=== PATIENT | female | born 1990 | race Caucasian/White ===

== ENCOUNTER 2022-03-02 16:28 | Inpatient (IN) ==
[2022-03-02] MEDS ORDERED: SODIUM CHLORIDE 0.9% 1000ML 1,000 ML IV STA (16:37)
[2022-03-02] MEDS ORDERED: ONDANSETRON INJ 2 MG/ML 2 ML VIAL IV STA (16:37)
[2022-03-02] MEDS ORDERED: HYDROCORTISONE SOD SUCCINATE 100 MG/2 ML VIAL IV STA (16:37)
--- NOTE | 2022-03-02 16:42 | Emergency Department Note ---
Impression & Plan Sustained SVT, Palpitations, Anxiety, Hypomagnesemia, Hypokalemia ED Provider Note NAME: JASMINA SOARES AGE: 31 SEX: F : 1990 ARRIVES VIA: Walk-In INFORMANT: Patient, ED PROVIDER(S): Jimmie Calle DO CHIEF COMPLAINT: Palpitations HPI: The patient is a 31-year-old female who has a history of SVT as well as panhypopituitary is him as well as atrial flutter who presented to the emergency department with palpitations. The patient states that she started having symptoms this morning. She denies having any chest pain. She does complain of some difficulty breathing especially with lying flat. She notices no leg swelling. She states that she is been compliant with her outpatient medications until this morning. She is been having nausea and vomiting as well and could not keep down her morning medications. The patient normally would take hydrocortisone. She denies having any fever. She is not from the area and only recently moved to this area. She does not wish to have Zofran for the nausea as he has a history of prolonged QT. The patient has not had a problem similar to this in the past but the most recent time she had this problem she needed to be cardioverted. ROS: See above HPI for pertinent positives & negatives. A total of 10 systems reviewed and were otherwise negative. PAST MEDICAL HISTORY: See Below PAST SURGICAL HISTORY: See Below FAMILY HISTORY: See Below SOCIAL HISTORY: See Below HOME MEDICATIONS: See Below ALLERGIES: See Below VITALS: See Below PHYSICAL EXAMINATION: GENERAL: The patient is awake and alert. She is very anxious appearing. EYES: The conjunctivae are clear. The pupils are round and reactive. EARS, NOSE, MOUTH AND THROAT: The nose is without any evidence of any deformity. NECK: The neck is nontender and supple. RESPIRATORY: Normal respiratory effort is noted there is no evidence of wheezing rhonchi or rales CARDIOVASCULAR: Tachycardic rate with regular rhythm was noted. There is no definite murmur. GASTROINTESTINAL: The abdomen is soft. Abdomen is nontender. MUSCULOSKELETAL/EXTREMITIES: There is no evidence of gross deformity full range of motion is noted in the hips and shoulders. SKIN: There is no obvious evidence of any rash. There are no petechiae, pallor or cyanosis noted. NEUROLOGIC: Patient is awake alert and oriented x3 strength is symmetric patellar reflexes are 2+ bilaterally MEDICAL DECISION MAKING: The patient is a 31-year-old female who presented to the emergency department for an evaluation of abnormal heart rate and possible SVT. The patient presented with a sustained SVT initially. Modified Valsalva maneuver seem to help with this and she initially broke to a sinus rhythm but then started going back into a tachycardia that appeared to have some variability as well as a slower rate than her initial presentation. I feel the second rate was secondary to a sinus tachycardia rather than recurrence of the SVT. I discussed patient's laboratory and radiographic studies with her. She was found to have significant hypomagnesemia as well as hypokalemia. She was treated with IV fluids as well as magnesium and potassium replacement. Given her findings I discussed her case with the on-call [facility]. They have agreed to evaluate the patie nt in the emergency department for further management and disposition. Triage Nursing notes reviewed. Prior medical records reviewed Vital Signs: reviewed and remarkable for tachycardia. Differential diagnosis: Premature contractions, electrolyte abnormality, cardiac dysrhythmia, thyroid dysfunction, pulmonary embolism, infection, gastrointestinal, as well as other pathologies. ER treatment provided: See below Diagnostics interpreted by me: ECG: EKG was obtained in the emergency department. My interpretation is sinus tachycardia 143 bpm. There was no PVCs noted. Nonspecific ST segment abnormalities noted. No previous tracing was available. Cardiac Monitoring: An order was placed for continuous cardiac monitoring. The monitor shows a rate of 121 bpm with sinus tachycardia. Laboratory studies: As stated above and show below. Imaging studies: See below Consultation(s): I discussed this case with Adenike who is on-call for the [facility] group. ED COURSE: Procedures: Modified Valsalva maneuver was performed at the bedside. This did result in resolution of the presenting SVT. 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 History of OCD (obsessive compulsive disorder) Hypogammaglobulinemia Panhypopituitarism Prolonged QT interval PTSD (post-traumatic stress disorder) SVT (supraventricular tachycardia) Surgical History S/P coil embolization of cerebral aneurysm Family History Mother Breast cancer Social History (Updated 03/02/22 @ 20:35 by ESTHER Soto) Smoking Status: Never smoker Hx Alcohol Use: No Hx Substance Use: No Preferred Language: Armenian Communication Ability: Effective 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 Beliefs That Will Affect Care: None Current Living Situation: Alone Feels Safe at Home: Yes Safety Concerns: Feels Safe At This Time Assistive Devices: None Allergies Allergies Allergy/AdvReac Type Severity Reaction Status Date / Time fentanyl Allergy Severe Anaphylaxis Verified 03/02/22 19:55 Penicillins Allergy Severe Anaphylaxis Verified 03/02/22 19:55 phenazopyridine Allergy Severe Anaphylaxis Verified 03/02/22 19:55 [From Pyridium] trimethobenzamide Allergy Severe Anaphylaxis Verified 03/02/22 19:55 [From Tigan] metoclopramide [From Reglan] AdvReac contraindic Verified 03/02/22 19:55 ated ondansetron [From Zofran] AdvReac contraindic Verified 03/02/22 19:55 ated prochlorperazine AdvReac contraindic Verified 03/02/22 19:55 [From Compazine] ated promethazine [From Phenergan] AdvReac contraindic Verified 03/02/22 19:55 ated Home Meds Home Medications Medication Instructions Recorded Confirmed albuterol sulfate 90 mcg/actuation 2 puff inhalation Q6 PRN Shortness 03/02/22 03/02/22 aerosol inhaler Of Breath Or Wheezing buspirone 10 mg tablet 10 mg PO HS 03/02/22 03/02/22 clopidogrel 75 mg tablet 75 mg PO QAM 03/02/22 03/02/22 cyanocobalamin (vitamin B-12) 1,000 mcg PO DAILY 03/02/22 03/02/22 1,000 mcg tablet epinephrine 0.3 mg/0.3 mL 0.3 mg IM UD PRN Allergic Reaction 03/02/22 03/02/22 injection, auto-injector ergocalciferol (vitamin D2) 1,250 1,250 mcg PO WK 03/02/22 03/02/22 mcg (50,000 unit) capsule eszopiclone 3 mg tablet (Lunesta) 3 mg PO HS 03/02/22 03/02/22 fluoxetine 40 mg capsule 80 mg PO QAM 03/02/22 03/02/22 fluticasone fur. 200 mcg-umeclid 1 ea inhalation DAILY 03/02/22 03/02/22 62.5 mcg-vilant 25 mcg inhalat.powder (Trelegy Ellipta) gabapentin 600 mg tablet,extended 600 mg PO PM 03/02/22 03/02/22 release 24 hr galcanezumab-gnlm 120 mg/mL 120 mg subcut MONTHLY 03/02/22 03/02/22 subcutaneous pen injector (Emgality Pen) hydrocortisone 5 mg tablet 15 mg PO . EVERY AFTERNOON 03/02/22 03/02/22 hydrocortisone 5 mg tablet 25 mg PO QAM 03/02/22 03/02/22 immune globulin (human) (IgG) 10 30 g IV MONTHLY 03/02/22 03/02/22 gram intravenous solution levothyroxine 88 mcg tablet 88 mcg PO DAILYBB 03/02/22 03/02/22 linaclotide 145 mcg capsule 145 mcg PO DAILYBB 03/02/22 03/02/22 (Linzess) trazodone 100 mg tablet 100 mg PO HS 03/02/22 03/02/22 zonisamide 100 mg capsule 100 mg PO DAILY 03/02/22 03/02/22 Results & Data (ED) Vital Signs Vital Signs - 24 hr 03/02/22 16:30 03/02/22 17:00 03/02/22 17:47 Temperature 36.6 C Temperature Source Temporal Artery Scan Pulse Rate 152 H 125 H Pulse Rate [Apical] 126 H Respiratory Rate 18 31 H 18 Respiratory Effort / Characteristics Non-Labored Respiratory Depth Normal Blood Pressure 147/98 H 97/62 L Blood Pressure [Left Arm] 102/70 Blood Pressure Mean 114 73 Blood Pressure Mean [Left Arm] 80 Pulse Oximetry 100 100 100 Oxygen Delivery Method Room Air Room Air Oxygen Flow Rate Sepsis Recent Fever Within 48 Hours No Sepsis New/Unexplained Change in Mental Status No Sepsis Action Taken by Nursing No Action Required 03/02/22 17:30 03/02/22 18:00 03/02/22 18:30 Temperature Temperature Source Pulse Rate 122 H 127 H 117 H Pulse Rate [Apical] Respiratory Rate 26 H 33 H 17 Respiratory Effort / Characteristics Respiratory Depth Blood Pressure 102/70 121/76 111/62 Blood Pressure [Left Arm] Blood Pressure Mean 80 91 78 Blood Pressure Mean [Left Arm] Pulse Oximetry 99 99 99 Oxygen Delivery Method Oxygen Flow Rate Sepsis Recent Fever Within 48 Hours Sepsis New/Unexplained Change in Mental Status Sepsis Action Taken by Nursing 03/02/22 19:00 03/02/22 19:00 03/02/22 19:00 Temperature Temperature Source Pulse Rate 122 H Pulse Rate [Apical] 115 H Respiratory Rate 18 16 Respiratory Effort / Characteristics Respiratory Depth Blood Pressure 94/53 L Blood Pressure [Left Arm] 97/60 L Blood Pressure Mean 66 Blood Pressure Mean [Left Arm] 72 Pulse Oximetry 98 98 Oxygen Delivery Method Room Air Room Air Oxygen Flow Rate 0 Sepsis Recent Fever Within 48 Hours Sepsis New/Unexplained Change in Mental Status Sepsis Action Taken by Usp Medications Current Medication List: was personally reviewed by me Laboratory Data Attestation: I reviewed the patient's lab results. Result diagrams: 03/02/22 16:59 03/02/22 16:59 Lab Results 03/02/22 03/02/22 03/02/22 Range/Units 16:59 16:59 16:59 WBC 11.39 H (4.8-10.8) K/ul RBC 3.94 (3.93-5.22) M/uL Hgb 11.7 L (12.0-16.0) g/dl Hct 34.3 (34.1-44.9) % MCV 87.1 (80.0-100.0) fL MCH 29.7 (25.0-34.0) pg MCHC 34.1 (32.0-36.0) g/dL RDW Std Deviation 39.5 (36.4-46.3) fL RDW Coeff of Belinda 12.5 (11.5-14.5) % Plt Count 297 (130-400) K/uL MPV 9.8 (9.4-12.3) fL Immature Gran % (Auto) 1.1 % Neut % (Auto) 58.0 % Lymph % (Auto) 34.0 % [place] % (Auto) 6.1 % Eos % (Auto) 0.4 % Baso % (Auto) 0.4 % Neut # (Auto) 6.63 H (1.4-6.5) K/uL Lymph # (Auto) 3.87 H (1.2-3.4) K/uL [place] # (Auto) 0.69 (0.24-0.82) K/uL Eos # (Auto) 0.04 (0-0.50) K/uL Baso # (Auto) 0.04 (0-0.2) K/uL Immature Gran # (Auto) 0.12 H (0.00-0.02) K/uL PT 10.2 (9.0-12.0) Seconds INR 1.0 (0.9-1.1) APTT 53.2 H* (21.0-31.0) Seconds PTT Ratio 1.9 Sodium (136-145) mmol/L Potassium (3.5-5.1) mmol/L Chloride (98-107) mmol/L Carbon Dioxide (21-32) mmol/L Anion Gap (3-11) BUN (6-23) mg/dl Creatinine (0.6-1.2) mg/dl Est Cr Clr Drug Dosing ml/min Est GFR ( Amer) ml/min Est GFR (Non-Af Amer) ml/min BUN/Creatinine Ratio (10-20) Glucose (70-99(Fasting)) mg/dl Calcium (8.5-10.1) mg/dl Phosphorus (2.5-4.9) mg/dl Magnesium (1.7-2.4) mg/dl Total Bilirubin (0.2-1.0) mg/dl AST (13-39) U/L ALT (7-52) U/L Alkaline Phosphatase (34-104) U/L Troponin I High Sens (0-14) pg/ml Total Protein (6.0-8.3) gm/dl Albumin (3.4-5.0) gm/dl Globulin (2.5-4.0) gm/dl Albumin/Globulin Ratio (0.9-2) TSH (0.300-4.500) uIu/ml HCG, Qual Negative (Negative) Urine Color Urine Appearance (Clear) Urine pH (4.5-7.5) Ur Specific [place] (1.000-1.030) Urine Protein (Negative) Urine Glucose (UA) (Negative) Urine Ketones (Negative) Urine Blood (Negative) Urine Nitrite (Negative) Urine Bilirubin (Negative) Urine Urobilinogen (Negative) Ur Leukocyte Esterase (Negative) Urine WBC (Auto) (0-5) /hpf Urine RBC (Auto) (0-4) /hpf U Hyaline Cast (Auto) (0-5) /lpf U Epithel Cells (Auto) (0-5) /lpf Urine Bacteria (Auto) (Negative) SARS-CoV-2, RNA, NAAT (NEGATIVE) 03/02/22 03/02/22 03/02/22 Range/Units 16:59 16:59 16:59 WBC (4.8-10.8) K/ul RBC (3.93-5.22) M/uL Hgb (12.0-16.0) g/dl Hct (34.1-44.9) % MCV (80.0-100.0) fL MCH (25.0-34.0) pg MCHC (32.0-36.0) g/dL RDW Std Deviation (36.4-46.3) fL RDW Coeff of Belinda (11.5-14.5) % Plt Count (130-400) K/uL MPV (9.4-12.3) fL Immature Gran % (Auto) % Neut % (Auto) % Lymph % (Auto) % [place] % (Auto) % Eos % (Auto) % Baso % (Auto) % Neut # (Auto) (1.4-6.5) K/uL Lymph # (Auto) (1.2-3.4) K/uL [place] # (Auto) (0.24-0.82) K/uL Eos # (Auto) (0-0.50) K/uL Baso # (Auto) (0-0.2) K/uL Immature Gran # (Auto) (0.00-0.02) K/uL PT (9.0-12.0) Seconds INR (0.9-1.1) APTT (21.0-31.0) Seconds PTT Ratio Sodium 138 (136-145) mmol/L Potassium 2.4 L* (3.5-5.1) mmol/L Chloride 107 (98-107) mmol/L Carbon Dioxide 19 L (21-32) mmol/L Anion Gap 12 H (3-11) BUN 17 (6-23) mg/dl Creatinine 0.67 (0.6-1.2) mg/dl Est Cr Clr Drug Dosing 149.5 ml/min Est GFR ( Amer) 133.9 ml/min Est GFR (Non-Af Amer) 115.5 ml/min BUN/Creatinine Ratio 25.4 H (10-20) Glucose 101 H (70-99(Fasting)) mg/dl Calcium 7.8 L (8.5-10.1) mg/dl Phosphorus 1.4 L* (2.5-4.9) mg/dl Magnesium 1.5 L (1.7-2.4) mg/dl Total Bilirubin 0.3 (0.2-1.0) mg/dl AST 12 L (13-39) U/L ALT 12 (7-52) U/L Alkaline Phosphatase 79 (34-104) U/L Troponin I High Sens 3.3 (0-14) pg/ml Total Protein 6.1 (6.0-8.3) gm/dl Albumin 3.7 (3.4-5.0) gm/dl Globulin 2.4 L (2.5-4.0) gm/dl Albumin/Globulin Ratio 1.5 (0.9-2) TSH 2.670 (0.300-4.500) uIu/ml HCG, Qual (Negative) Urine Color Urine Appearance (Clear) Urine pH (4.5-7.5) Ur Specific [place] (1.000-1.030) Urine Protein (Negative) Urine Glucose (UA) (Negative) Urine Ketones (Negative) Urine Blood (Negative) Urine Nitrite (Negative) Urine Bilirubin (Negative) Urine Urobilinogen (Negative) Ur Leukocyte Esterase (Negative) Urine WBC (Auto) (0-5) /hpf Urine RBC (Auto) (0-4) /hpf U Hyaline Cast (Auto) (0-5) /lpf U Epithel Cells (Auto) (0-5) /lpf Urine Bacteria (Auto) (Negative) SARS-CoV-2, RNA, NAAT (NEGATIVE) 03/02/22 03/02/22 Range/Units 18:02 18:18 WBC (4.8-10.8) K/ul RBC (3.93-5.22) M/uL Hgb (12.0-16.0) g/dl Hct (34.1-44.9) % MCV (80.0-100.0) fL MCH (25.0-34.0) pg MCHC (32.0-36.0) g/dL RDW Std Deviation (36.4-46.3) fL RDW Coeff of Belinda (11.5-14.5) % Plt Count (130-400) K/uL MPV (9.4-12.3) fL Immature Gran % (Auto) % Neut % (Auto) % Lymph % (Auto) % [place] % (Auto) % Eos % (Auto) % Baso % (Auto) % Neut # (Auto) (1.4-6.5) K/uL Lymph # (Auto) (1.2-3.4) K/uL [place] # (Auto) (0.24-0.82) K/uL Eos # (Auto) (0-0.50) K/uL Baso # (Auto) (0-0.2) K/uL Immature Gran # (Auto) (0.00-0.02) K/uL PT (9.0-12.0) Seconds INR (0.9-1.1) APTT (21.0-31.0) Seconds PTT Ratio Sodium (136-145) mmol/L Potassium (3.5-5.1) mmol/L Chloride (98-107) mmol/L Carbon Dioxide (21-32) mmol/L Anion Gap (3-11) BUN (6-23) mg/dl Creatinine (0.6-1.2) mg/dl Est Cr Clr Drug Dosing ml/min Est GFR ( Amer) ml/min Est GFR (Non-Af Amer) ml/min BUN/Creatinine Ratio (10-20) Glucose (70-99(Fasting)) mg/dl Calcium (8.5-10.1) mg/dl Phosphorus (2.5-4.9) mg/dl Magnesium (1.7-2.4) mg/dl Total Bilirubin (0.2-1.0) mg/dl AST (13-39) U/L ALT (7-52) U/L Alkaline Phosphatase (34-104) U/L Troponin I High Sens (0-14) pg/ml Total Protein (6.0-8.3) gm/dl Albumin (3.4-5.0) gm/dl Globulin (2.5-4.0) gm/dl Albumin/Globulin Ratio (0.9-2) TSH (0.300-4.500) uIu/ml HCG, Qual (Negative) Urine Color Yellow Urine Appearance Turbid A (Clear) Urine pH 8.0 H (4.5-7.5) Ur Specific [place] 1.013 (1.000-1.030) Urine Protein Negative (Negative) Urine Glucose (UA) Negative (Negative) Urine Ketones Negative (Negative) Urine Blood Trace H (Negative) Urine Nitrite Negative (Negative) Urine Bilirubin Negative (Negative) Urine Urobilinogen Negative (Negative) Ur Leukocyte Esterase Negative (Negative) Urine WBC (Auto) 1-5 (0-5) /hpf Urine RBC (Auto) 5-10 H (0-4) /hpf U Hyaline Cast (Auto) 1-5 (0-5) /lpf U Epithel Cells (Auto) >30 H (0-5) /lpf Urine Bacteria (Auto) 1+ H (Negative) SARS-CoV-2, RNA, NAAT NEGATIVE (NEGATIVE) Administered Medications Potassium Chloride (K Yoseph / Wtr) 10 meq in 100 mls @ 100 mls/hr IV Q1H JUAN MIGUEL Stop: 03/03/22 00:14 Last Admin: 03/02/22 23:32 Dose: 100 mls/hr Documented By: Infusion: 03/02/22 23:20 Dose: 100 mls/hr Documented By: Admin: 03/02/22 22:20 Dose: 100 mls/hr Documented By: TMKevan Infusion: 03/02/22 22:20 Dose: 100 mls/hr Documented By: Admin: 03/02/22 21:41 Dose: 100 mls/hr Documented By: PATRIC Potassium Phosphate 21 mmol/ (Sodium Chloride) 507 mls @ 88 mls/hr IV ONE ONE Stop: 03/03/22 02:45 Last Admin: 03/02/22 21:42 Dose: 88 mls/hr Documented By: PATRIC Discontinued Medications Diphenhydramine HCl (Diphenhydramine 50 Mg/Ml Vial) 25 mg IV NOW STA Stop: 03/02/22 19:44 Last Admin: 03/02/22 21:19 Dose: Not Given Documented By: KT Diphenhydramine HCl (Diphenhydramine 50 Mg/Ml Vial) Confirm Administered Dose 50 mg .ROUTE .STK-MED ONE Stop: 03/02/22 20:06 Last Admin: 03/02/22 20:09 Dose: 25 mg Documented By: KT Hydrocortisone Sodium Succinate (Hydrocortisone Sod Succinate 100 Mg/2 Ml Vial) 100 mg IV NOW STA Stop: 03/02/22 16:38 Last Admin: 03/02/22 16:53 Dose: 100 mg Documented By: TRAVIS Hydromorphone HCl (Hydromorphone Inj 0.5 Mg/0.5 Ml Syr) Confirm Administered Dose 0.5 mg .ROUTE .STK-MED ONE Stop: 03/02/22 22:42 Last Admin: 03/02/22 22:45 Dose: 0.5 mg Documented By: DENI Sodium Chloride (Nss 1000ml) 1,000 mls @ 999 mls/hr IV .Q1H1M STA Stop: 03/02/22 17:37 Last Infusion: 03/02/22 18:09 Dose: 0 mls/hr Documented By: Admin: 03/02/22 16:55 Dose: 999 mls/hr Documented By: TRAVIS Magnesium Sulfate/Dextrose (Magnesium Sulfate / D5w) 1 gm in 100 mls @ 100 mls/hr IV NOW STA Stop: 03/02/22 18:51 Last Infusion: 03/02/22 19:32 Dose: 0 mls/hr Documented By: Infusion: 03/02/22 19:32 Dose: 0 mls/hr Documented By: Admin: 03/02/22 18:14 Dose: 100 mls/hr Documented By: ML Potassium Chloride (K Yoseph / Wtr) 10 meq in 100 mls @ 100 mls/hr IV ONE ONE; P rotocol Stop: 03/02/22 18:51 Last Infusion: 03/02/22 19:40 Dose: 0 mls/hr Documented By: Admin: 03/02/22 18:14 Dose: 100 mls/hr Documented By: ML Sodium Chloride (Nss 1000ml) 1,000 mls @ 999 mls/hr IV .Q1H1M ONE Stop: 03/02/22 20:36 Last Infusion: 03/02/22 21:19 Dose: 0 mls/hr Documented By: Admin: 03/02/22 20:08 Dose: 999 mls/hr Documented By: PATRIC Ondansetron HCl (Ondansetron Inj 2 Mg/Ml 2 Ml Vial) 4 mg IV NOW STA Stop: 03/02/22 16:38 Last Admin: 03/02/22 17:28 Dose: Not Given Documented By: DERIK Potassium Chloride (Potassium Chloride 10 Meq Tabcr) 10 meq PO NOW STA Stop: 03/02/22 17:53 Last Admin: 03/02/22 18:14 Dose: 10 meq Documented By: JERAMIE Potassium Chloride (Potassium Chloride Crtab 20 Meq Tabcr) 40 meq PO NOW STA Stop: 03/02/22 20:03 Last Admin: 03/02/22 21:41 Dose: Not Given Documented By: PATRIC Imaging Data Radiologist's Impression: Chest X-Ray 03/02/22 16:38 XR chest 1V portable CLINICAL HISTORY: Dysrhythmia TECHNIQUE: Single frontal radiograph of the chest was obtained. Comparison: None available at the time of this dictation. FINDINGS: A port catheter is seen. The cardiomediastinal silhouette is normal. The lungs are clear. No evidence of pleural effusion or pneumothorax. IMPRESSION: No acute chest disease. ACT 112: Negative or not required by law. Electronically signed by: Jos Otero M.D. 03/02/2022 5:21 PM Discharge Plan Visit Data Chief Complaint: Tachycardia Stated Complaint: CHEST PAIN, SOB, RAPID HEART BEAT ED Provider: Jimmie Calle Discharge Problem: Sustained SVT, Palpitations, Anxiety, Hypomagnesemia, Hypokalemia Patient Disposition: Admitted As Inpatient Discharge Instructions Interventions: ED Discharge Assessment Last Done: 03/02/22 22:11
[2022-03-02 17:15] LABS: Basophils # (auto) 0.04 K/uL (0-0.2); Basophils % (auto) 0.4 %; Eosinophils # (auto) 0.04 K/uL (0-0.50); Eosinophils % (auto) 0.4 %; Hematocrit (blood only) 34.3 % (34.1-44.9); Hemoglobin 11.7 g/dl (12.0-16.0); Immature Granulocytes # (auto) 0.12 K/uL (0.00-0.02); Immature Granulocytes % (auto) 1.1 %; Lymphocytes # (auto) 3.87 K/uL (1.2-3.4); Mean Corpuscular Hemoglobin 29.7 pg (25.0-34.0); Mean Corpuscular Hgb Conc 34.1 g/dL (32.0-36.0); Mean Corpuscular Volume 87.1 fL (80.0-100.0); Mean Platelet Volume 9.8 fL (9.4-12.3); Monocytes # (auto) 0.69 K/uL (0.24-0.82); Monocytes % (auto) 6.1 %; Neutrophils # (auto) 6.63 K/uL (1.4-6.5); Platelet Count 297 K/uL (130-400); RDW Coefficient of Variation 12.5 % (11.5-14.5); RDW Standard Deviation 39.5 fL (36.4-46.3); Red Blood Count 3.94 M/uL (3.93-5.22); White Blood Count 11.39 K/ul (4.8-10.8)
--- NOTE | 2022-03-02 17:23 | XRay Report ---
XR chest 1V portable CLINICAL HISTORY: Dysrhythmia TECHNIQUE: Single frontal radiograph of the chest was obtained. Comparison: None available at the time of this dictation. FINDINGS: A port catheter is seen. The cardiomediastinal silhouette is normal. The lungs are clear. No evidence of pleural effusion or pneumothorax. IMPRESSION: No acute chest disease. ACT 112: Negative or not required by law. Electronically signed by: Jos Otero M.D. 03/02/2022 5:21 PM
[2022-03-02 17:41] LABS: Pregnancy Test, Serum Negative (Negative)
[2022-03-02 17:45] LABS: Albumin Globulin Ratio 1.5 (0.9-2); Albumin Level 3.7 gm/dl (3.4-5.0); BUN Creatinine Ratio 25.4 (10-20); Bilirubin,Total 0.3 mg/dl (0.2-1.0); Calcium 7.8 mg/dl (8.5-10.1); Creatinine Clr Calc Pharmacy 149.5 ml/min; Est GFR (African American) 133.9 ml/min; Est GFR (Non-African American) 115.5 ml/min; Globulin 2.4 gm/dl (2.5-4.0); Magnesium 1.5 mg/dl (1.7-2.4); Potassium 2.4 mmol/L (3.5-5.1); Total Protein 6.1 gm/dl (6.0-8.3); Troponin I High Sensitivity 3.3 pg/ml (0-14)
[2022-03-02] MEDS ORDERED: POTASSIUM CHLORIDE / WTR 10 MEQ/100 ML PLCT IV ONE (17:52)
[2022-03-02] MEDS ORDERED: POTASSIUM CHLORIDE 10 MEQ TABCR PO STA (17:52)
[2022-03-02] MEDS ORDERED: MAGNESIUM SULFATE / D5W 1 GM/100 ML BAG IV STA (17:52)
[2022-03-02 17:54] LABS: Partial Thromboplastin Ratio 1.9; Prothrombin Time 10.2 Seconds (9.0-12.0)
[2022-03-02 17:59] LABS: Partial Thromboplastin Time 53.2 Seconds (21.0-31.0)
[2022-03-02] MEDS ORDERED: SODIUM CHLORIDE 0.9% 1000ML 1,000 ML IV ONE (19:36)
[2022-03-02] MEDS ORDERED: diphenhydrAMINE 50 MG/ML VIAL IV STA (19:43)
[2022-03-02 19:56] LABS: Appearance Urine Turbid (Clear); Bacteria Urine Automated 1+ (Negative); Bilirubin Urine Negative (Negative); Blood Urine Trace (Negative); Color Urine Yellow; Epithelial Cell Urine Auto >30 /lpf (0-5); Glucose Urine UA Negative (Negative); Ketones Urine Negative (Negative); Leukocyte Esterase Urine Negative (Negative); Nitrite Urine Negative (Negative); Protein Urine Negative (Negative); Specific Gravity Urine 1.013 (1.000-1.030); Urobilinogen Urine Negative (Negative)
[2022-03-02] MEDS ORDERED: POTASSIUM CHLORIDE CRTAB 20 MEQ TABCR PO STA (20:02)
[2022-03-02] MEDS ORDERED: diphenhydrAMINE 50 MG/ML VIAL ONE (20:05)
--- NOTE | 2022-03-02 20:33 | History & Physical Report ---
Date of Service March 02, 2022 Assessment & Plan (1) Panhypopituitarism: (2) Adrenal insufficiency: Plan: Admit to telemetry Patient presenting with reports of nausea, vomiting, abdominal pain, palpitations. Review of outpatient records show several previous admissions for similar presentation. Most recently [place] [facility] [place]/01 for viral gastroenteritis type picture and treated for adrenal crisis. In the ED, presented with SVT and borderline hypotension, multiple electrolyte abnormalities S/p IV hydrocortisone 100 mg in ED, continue with IV hydrocortisone 100 mg q8h Follows with endocrinology at [facility] [place] (3) Hypokalemia: (4) Hypophosphatemia: (5) Hypomagnesemia: Plan: K+ 2.4, Phos 1.4, Mg +1.5 Replace, follow electrolytes (6) SVT (supraventricular tachycardia): (7) Prolonged QT interval: Plan: History of SVT requiring cardioversion and prolonged QT in the past due to severe electrolyte abnormalities Presented with SVT today which improved with Valsalva maneuver and IVF Prolonged QTC noted on EKG -- avoid QTC prolonging agents, correct electrolytes, monitor daily EKG (8) S/P coil embolization of cerebral aneurysm: (9) History of cerebral aneurysm: Plan: Continue clopidogrel (10) YVETTE (generalized anxiety disorder): (11) PTSD (post-traumatic stress disorder): (12) History of OCD (obsessive compulsive disorder): Plan: Continue home medications including buspirone, trazodone, zonisamide, Lunesta, fluoxetine (13) Hypogammaglobulinemia: Plan: Receives IVIG monthly (14) Asthma: Plan: No signs of acute exacerbation, continue home inhaler (15) DVT prophylaxis: Plan: SCDs History of Present Illness Chief Complaint: Abdominal pain, nausea, vomiting, palpitations Primary Care Provider: Harmeet Correa MD 31-year-old female with PMH panhypopituitary is him, adrenal insufficiency, common variable immunodeficiency, hypogammaglobulinemia on IVIG monthly, prolonged QT, SVT, history of cerebral aneurysm s/p stenting and coiling, asthma, OCD, PTSD, anxiety, and other problems listed below who presents the ED for evaluation of abdominal pain, nausea, palpitations. Review of outpatient records show that patient is frequently admitted for similar presentation. Most recently admitted to [facility] [place] 02/25 through 03/01 for viral gastroenteritis-like picture, treated for adrenal crisis. Patient reports she was feeling well until this afternoon when she had sudden onset nausea, lower abdominal pain, multiple episodes of vomiting. Patient states she then developed palpitations. Patient reports she is visiting a friend in [place]. She denies fevers and chills. No lightheadedness, dizziness, diaphoresis, syncopal events. She denies hematemesis, coffee-ground emesis, diarrhea, bright OB impression, dark tarry stools. No urinary symptoms. Upon arrival to the ED, patient was found to be tachycardic in the 150s, consistent with SVT. Heart rate improved with Valsalva maneuver. Labs show significant hypokalemia with K+ 2.4. Mg +1.5. Patient was given IVF, IV hydrocortisone, potassium and magnesium replacement. Allergies Allergy/AdvReac Type Severity Reaction Status Date / Time fentanyl Allergy Severe Anaphylaxis Verified 03/02/22 19:55 Penicillins Allergy Severe Anaphylaxis Verified 03/02/22 19:55 phenazopyridine Allergy Severe Anaphylaxis Verified 03/02/22 19:55 [From Pyridium] trimethobenzamide Allergy Severe Anaphylaxis Verified 03/02/22 19:55 [From Tigan] metoclopramide [From Reglan] AdvReac contraindic Verified 03/02/22 19:55 ated ondansetron [From Zofran] AdvReac contraindic Verified 03/02/22 19:55 ated prochlorperazine AdvReac contraindic Verified 03/02/22 19:55 [From Compazine] ated promethazine [From Phenergan] AdvReac contraindic Verified 03/02/22 19:55 ated Home Medications Medication Instructions Recorded Confirmed Type albuterol sulfate 90 mcg/actuation 2 puff inhalation Q6 PRN Shortness 03/02/22 03/02/22 History aerosol inhaler Of Breath Or Wheezing buspirone 10 mg tablet 10 mg PO HS 03/02/22 03/02/22 History clopidogrel 75 mg tablet 75 mg PO QAM 03/02/22 03/02/22 History cyanocobalamin (vitamin B-12) 1,000 mcg PO DAILY 03/02/22 03/02/22 History 1,000 mcg tablet epinephrine 0.3 mg/0.3 mL 0.3 mg IM UD PRN Allergic Reaction 03/02/22 03/02/22 History injection, auto-injector ergocalciferol (vitamin D2) 1,250 1,250 mcg PO WK 03/02/22 03/02/22 History mcg (50,000 unit) capsule eszopiclone 3 mg tablet (Lunesta) 3 mg PO HS 03/02/22 03/02/22 History fluoxetine 40 mg capsule 80 mg PO QAM 03/02/22 03/02/22 History fluticasone fur. 200 mcg-umeclid 1 ea inhalation DAILY 03/02/22 03/02/22 History 62.5 mcg-vilant 25 mcg inhalat.powder (Trelegy Ellipta) gabapentin 600 mg tablet,extended 600 mg PO PM 03/02/22 03/02/22 History release 24 hr galcanezumab-gnlm 120 mg/mL 120 mg subcut MONTHLY 03/02/22 03/02/22 History subcutaneous pen injector (Emgality Pen) hydrocortisone 5 mg tablet 15 mg PO . EVERY AFTERNOON 03/02/22 03/02/22 History hydrocortisone 5 mg tablet 25 mg PO QAM 03/02/22 03/02/22 History immune globulin (human) (IgG) 10 30 g IV MONTHLY 03/02/22 03/02/22 History gram intravenous solution levothyroxine 88 mcg tablet 88 mcg PO DAILYBB 03/02/22 03/02/22 History linaclotide 145 mcg capsule 145 mcg PO DAILYBB 03/02/22 03/02/22 History (Linzess) trazodone 100 mg tablet 100 mg PO HS 03/02/22 03/02/22 History zonisamide 100 mg capsule 100 mg PO DAILY 03/02/22 03/02/22 History 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 History of OCD (obsessive compulsive disorder) Hypogammaglobulinemia Panhypopituitarism Prolonged QT interval PTSD (post-traumatic stress disorder) SVT (supraventricular tachycardia) Surgical History S/P coil embolization of cerebral aneurysm Family History Mother Breast cancer Social History (Updated 03/02/22 @ 20:35 by ESTHER Soto) Smoking Status: Never smoker Hx Alcohol Use: No Hx Substance Use: No Preferred Language: Greenlandic Communication Ability: Effective Computer Operations Analyst Required: No Beliefs That Will Affect Care: None Current Living Situation: Alone Feels Safe at Home: Yes Safety Concerns: Feels Safe At This Time Assistive Devices: None Review of Systems Review of Systems: ROS per HPI, all other systems reviewed and negative Physical Exam Constitutional: WD/WN, vitals as above Eyes: PERRL, conjunctivae normal, anicteric sclerae ENMT: external ear and nose normal, oropharynx normal Respiratory: normal respiratory effort, lungs clear to auscultation Cardiovascular: Rate/Rhythm: regular rhythm and + tachycardic Vessels: normal peripheral pulses Extremities: no edema Gastrointestinal (Abdomen): Inspection/Auscultation: normal bowel sounds; abdomen not distended Percussion/Palpation: + abdomen tender (BLLQ ) and abdomen soft; no hepatosplenomegaly Musculoskeletal: no cyanosis or clubbing, extremities motor strength 5/5 Skin: no rashes, warm and dry Neurologic: PERRL, EOMI, accommodation nl, no face palsy, no dysarthria Psychiatric: Orientation: alert and oriented x 3 Affect: + anxious affect Results & Data Results & Data ([facility]) Vital Signs (Past 12 Hours) Vital Signs Temp Pulse Pulse Resp BP BP Pulse Ox 03/02/22 19:00 115 H 16 97/60 L 98 03/02/22 19:00 98 03/02/22 19:00 122 H 18 94/53 L 03/02/22 18:30 117 H 17 111/62 99 03/02/22 18:00 127 H 33 H 121/76 99 03/02/22 17:30 122 H 26 H 102/70 99 03/02/22 17:47 126 H 18 102/70 100 03/02/22 17:00 125 H 31 H 97/62 L 100 03/02/22 16:30 36.6 C 152 H 18 147/98 H 100 O2 Del Method O2 Flow Rate 03/02/22 19:00 Room Air 03/02/22 19:00 Room Air 0 03/02/22 19:00 03/02/22 18:30 03/02/22 18:00 03/02/22 17:30 03/02/22 17:47 Room Air 03/02/22 17:00 03/02/22 16:30 Room Air Laboratory Results Short CBC 03/02/22 Range/Units 16:59 WBC 11.39 H (4.8-10.8) K/ul Hgb 11.7 L (12.0-16.0) g/dl Hct 34.3 (34.1-44.9) % Plt Count 297 (130-400) K/uL BMP 03/02/22 16:59 Sodium 138 Potassium 2.4 L* Chloride 107 Carbon Dioxide 19 L BUN 17 Creatinine 0.67 Glucose 101 H Calcium 7.8 L Liver Function 03/02/22 Range/Units 16:59 Total Bilirubin 0.3 (0.2-1.0) mg/dl AST 12 L (13-39) U/L ALT 12 (7-52) U/L Alkaline Phosphatase 79 (34-104) U/L Albumin 3.7 (3.4-5.0) gm/dl Urine 03/02/22 Range/Units 18:02 Urine Color Yellow Urine Appearance Turbid A (Clear) Urine pH 8.0 H (4.5-7.5) Ur Specific Whitney 1.013 (1.000-1.030) Urine Protein Negative (Negative) Urine Glucose (UA) Negative (Negative) Diagnostic Findings Chest X-Ray 03/02/22 16:38 XR chest 1V portable CLINICAL HISTORY: Dysrhythmia TECHNIQUE: Single frontal radiograph of the chest was obtained. Comparison: None available at the time of this dictation. FINDINGS: A port catheter is seen. The cardiomediastinal silhouette is normal. The lungs are clear. No evidence of pleural effusion or pneumothorax. IMPRESSION: No acute chest disease. ACT 112: Negative or not required by law. Electronically signed by: Jos Otero M.D. 03/02/2022 5:21 PM Code Status & VTE Plan VTE Prophylaxis Plan VTE Prophylaxis will be ordered: Yes Supervising Physician Co-Signing Physician Notes Care coordinated with ESTHER Soto. Agree with above note. Patient seen and examined. Please refer to her notes for full details. Vital signs reviewed. Physical exam: General exam: Alert and oriented. Not in acute distress. CVS: S1 and S2 heard, regular rate and rhythm, no murmurs. RS: Clear to auscultation, no wheezing or crackles. ABD: Soft, bowel sounds present, nontender, no distention. HONEY GRADER AND BLENDER: Nonfocal. EXT: No edema, no erythema. Labs: Reviewed. Assessment and plan: 31f presents with nausea/abdominal pain tachycardia , electrolyte abnormalities. Seems multiple admissions due it GI issues and not able to tolerate oral hydrocortisone as per recent endocrinology notes. Patient has panhypopitutarism since aneurysm surgery . Dx to have aneurysm and s/p stent in [place] in October/january. ? bleeding into sella from aneurysm-had evacuation, unclear she had pituitary resection as per endocrinology notes. Supposed to be on desmopressin but staying off it as per Endo notes. Was in SVT in ER converted to sinus rhythm by modified Vasalva manucarley. Again during night she was in sinus tachycardia and as SBP ok gave a dose of iv lopressor 2.5mg. repleting electrolytes. requesting iv benadryl for nausea as she has qt prolongation. requesting pain meds for abdominal pain. Seems Did not wanted ct abd as she had many ct scans . If not improving will consult GI and if need cardiology .Will continue stress dose iv steroids .Close monitor. Other diagnosis and plan of care as per []. Maciej miller MD.
[2022-03-02] MEDS ORDERED: POTASSIUM PHOS 3 MMOL/1 ML INFUSION IV STA (20:40)
[2022-03-02] MEDS ORDERED: POTASSIUM PHOSPHATE 21 MMOL in SODIUM CHLORIDE 0.9% 500 ML IV ONE (21:00)
[2022-03-02] MEDS: POTASSIUM CHLORIDE / WTR 10 MEQ/100 ML PLCT IV SCH ×3 (21:41→23:32)
[2022-03-02] MEDS ORDERED: ACETAMINOPHEN 325 MG TAB PO PRN (22:14)
[2022-03-02] MEDS ORDERED: HYDROCORTISONE SOD SUCCINATE 100 MG/2 ML VIAL IV SCH (22:14)
[2022-03-02] MEDS ORDERED: HYDROmorphone INJ 0.5 MG/0.5 ML SYR IV PRN (22:31)
[2022-03-02] MEDS ORDERED: HYDROmorphone INJ 0.5 MG/0.5 ML SYR ONE (22:41)
[2022-03-02] MEDS ORDERED: HYDROmorphone INJ 0.5 MG/0.5 ML SYR IV STA (23:49)
[2022-03-03] MEDS ORDERED: AZTREONAM 1,000 MG in DEXTROSE 5% 100 ML IV SCH
[2022-03-03] MEDS: busPIRone 5 MG TAB PO SCH ×2 (00:41→20:48)
[2022-03-03] MEDS: GABAPENTIN 600 MG TAB PO SCH ×2 (00:41→20:48)
[2022-03-03] MEDS: ESZOPICLONE 1 MG TAB PO SCH ×2 (00:41→20:48)
[2022-03-03] MEDS: HYDROCORTISONE SOD 100 MG in SYRINGE 0 ML IV SCH ×2 (00:41→08:42)
[2022-03-03 00:42] LABS: BUN Creatinine Ratio 16.9 (10-20); Creatinine Clr Calc Pharmacy 169.6 ml/min; Est GFR (African American) 139.6 ml/min; Est GFR (Non-African American) 120.4 ml/min; Potassium 4.1 mmol/L (3.5-5.1)
[2022-03-03] MEDS ORDERED: diphenhydrAMINE 50 MG/ML VIAL IV STA ×3 (00:45→14:18)
[2022-03-03] MEDS: traZODone HCL 100 MG TAB PO SCH ×2 (00:45→20:48)
[2022-03-03] MEDS ORDERED: METOPROLOL TARTRATE 1 MG/ML VIAL IV STA (02:56)
[2022-03-03] MEDS: POTASSIUM CHLORIDE 40 MEQ in NORMOSOL-R 1,000 ML IV SCH ×4 (04:40→22:38)
[2022-03-03] MEDS: LINACLOTIDE 145 MCG CAPSULE PO SCH (04:46)
[2022-03-03] MEDS: LEVOTHYROXINE SODIUM 88 MCG TABLET PO SCH (04:46)
[2022-03-03 06:29] LABS: Hematocrit (blood only) 35.3 % (34.1-44.9); Hemoglobin 11.5 g/dl (12.0-16.0); Mean Corpuscular Hemoglobin 29.2 pg (25.0-34.0); Mean Corpuscular Hgb Conc 32.6 g/dL (32.0-36.0); Mean Corpuscular Volume 89.6 fL (80.0-100.0); Mean Platelet Volume 9.9 fL (9.4-12.3); Platelet Count 314 K/uL (130-400); RDW Coefficient of Variation 12.9 % (11.5-14.5); RDW Standard Deviation 42.2 fL (36.4-46.3); Red Blood Count 3.94 M/uL (3.93-5.22); White Blood Count 14.51 K/ul (4.8-10.8)
[2022-03-03 06:33] LABS: BUN Creatinine Ratio 15.3 (10-20); Calcium 8.2 mg/dl (8.5-10.1); Creatinine Clr Calc Pharmacy 169.6 ml/min; Est GFR (African American) 139.6 ml/min; Est GFR (Non-African American) 120.4 ml/min; Magnesium 1.9 mg/dl (1.7-2.4); Phosphorus 3.4 mg/dl (2.5-4.9); Potassium 4.1 mmol/L (3.5-5.1)
[2022-03-03] MEDS ORDERED: HYDROmorphone INJ 0.5 MG/0.5 ML SYR IV PRN (08:17)
[2022-03-03] MEDS ORDERED: NON-FORMULARY MEDICATION (Fluticasone-Umeclidin-Vilanter [Trelegy Ellipta] 200-62.5-25 mcg INH SCH (09:00)
[2022-03-03] MEDS: diphenhydrAMINE 50 MG/ML VIAL IV PRN ×2 (09:43→18:12)
[2022-03-03] MEDS: HYDROCORTISONE SOD 40 MG in SYRINGE 0 ML IV SCH ×2 (10:51→18:07)
[2022-03-03] MEDS: FLUoxetine HCL 20 MG CAP PO SCH (10:52)
[2022-03-03] MEDS: FLUTICASONE FUROATE 200MCG 14 PUFFS/INHALER INH SCH (10:52)
[2022-03-03] MEDS: CLOPIDOGREL BISULFATE 75 MG TAB PO SCH (10:52)
[2022-03-03] MEDS: UMECLIDINIUM/VILANTEROL 62.5/25MCG 7 PUFFS/INHALER INH SCH (10:53)
--- NOTE | 2022-03-03 11:09 | Electrocardiogram Report ---
Test Reason : Blood Pressure : / mmHG Vent. Rate : 143 BPM Atrial Rate : 143 BPM P-R Int : 122 ms QRS Dur : 076 ms QT Int : 370 ms P-R-T Axes : 068 -25 050 degrees QTc Int : 571 ms Poor data quality, interpretation may be adversely affected Sinus tachycardia Possible Left atrial enlargement possible Inferior infarct , age undetermined Poor R wave progression, consider anterior OR vs. lead placement vs. LVH Abnormal ECG No previous ECGs available Confirmed by Edvin Rodrigues ([id number]) on 03/03/2022 11:09:03 AM Referred By: REFERRED SELF Confirmed By:Xu Rodrigues
--- NOTE | 2022-03-03 11:16 | Electrocardiogram Report ---
Test Reason : Blood Pressure : / mmHG Vent. Rate : 121 BPM Atrial Rate : 121 BPM P-R Int : 136 ms QRS Dur : 082 ms QT Int : 344 ms P-R-T Axes : 073 -39 025 degrees QTc Int : 488 ms Sinus tachycardia Left axis deviation possible Inferior infarct (cited on or before 02-MAR-2022) Poor R wave progression, consider anterior NM vs. lead placement vs. LVH Abnormal ECG When compared with ECG of 02-MAR-2022 16:40, (unconfirmed) No significant change was found Confirmed by Edvin Rodrigues ([id number]) on 03/03/2022 11:16:19 AM Referred By: REFERRED SELF Confirmed By:Xu Rodrigues
--- NOTE | 2022-03-03 11:53 | Gastrointestinal Consultation ---
Date of Consultation March 03, 2022 Assessment & Plan (1) Adrenal insufficiency: Her presentation is nearly exact to that described at [facility] from 02/25 to 03/01. Diff Dx includes her known AI, Gastroenteritiis, Gastroparesis, less likely PUD. Likely all metabolic and would support Acute AI tx Would add PPI, prilosec or Nexium 40 mg BID Benadryl PRN for nausea Prn Ativan at low dose for nausea RUQ US to r/o GB pathology Continue supportive care as she is improving If any changes on RUQ US then will tx appropriately, otherwise, can f/u in [place] with GI as scheduled and will sign off as no role for repeat endoscopy or other interventions Call with questions History of Present Illness Reason for Consultation: Nausea and vomiting Attending Physician: Jamal Velez MD History of Present Illness 31 year old female PMH of common variable immunodeficiency(on monthly IVIG), panhypopituitarism (s/p pituitary adenoma resection)with adrenal insufficiency, hypothyroidism and ? DI,cerebral aneurysm s/p stent (onplavix), migraine headache, YVETTE,PTSD,gastroparesis, erosive gastritis,gastric AVMs (s/p APC 05/20/21),hemochromatosis,and asthmawho presented to the ER after being d/c'd one day ealier from [facility] and having just left her Endrocrinology appt in [place] and apparently visiting a friend in [place] upon which time she began to feel her heart race. She thought she had recurrent SVT so presented to ER here. She had apparent associated n/v without evidence of bleeding and similar to all of her episodes of adrenal crisis. Her rate improved with valsalva alone, still mildly tachycardic but improved dyspnea that she had associated with this. No fevers, chills, no diarrhea. She has not had any melena, hematochezia, or concern for GI bleeding. Nausea can only be treated with benadryl and benzo's given prolonged QTc. Last EGD in [facility] for Denson placement with food in stomach and mild gastritis was noted. CT in [place] 02/21 EXAM: CT ABDOMEN AND PELVIS WITH CONTRAST HISTORY: with abdominal pain evaluate infectious cause COMPARISON: CT 02/07/2022 TECHNIQUE: CT abdomen and pelvis with intravenous contrast was performed. FINDINGS: LOWER CHEST: Clear lung bases. LIVER: There are hypodense lesions liver which appears similar in size to that seen previously. These measure up to 1.3 cm in the inferior right lobe of the liver. These may represent hemangiomas versus other focal lesion. GALLBLADDER/BILE DUCTS: The gallbladder appears partially contracted and is suboptimal for evaluation. PANCREAS: Unremarkable. GI TRACT: The bowel is grossly within normal limits in appearance. SPLEEN: Unremarkable. LYMPH NODES: No lymphadenopathy. ADRENAL GLANDS: Unremarkable. KIDNEYS/URETERS: Unremarkable. URINARY BLADDER: Unremarkable. REPRODUCTIVE ORGANS: Grossly within normal limits. There are follicular changes in the ovaries. The uterus appears retroflexed. VASCULATURE: No abdominal aortic aneurysm. MISCELLANEOUS: No free fluid or free air. MUSCULOSKELETAL: Unremarkable. IMPRESSION: No definite evidence of acute pathology is visualized in the abdomen and pelvis. Allergies Allergy/AdvReac Type Severity Reaction Status Date / Time fentanyl Allergy Severe Anaphylaxis Verified 03/02/22 19:55 Penicillins Allergy Severe Anaphylaxis Verified 03/02/22 19:55 phenazopyridine Allergy Severe Anaphylaxis Verified 03/02/22 19:55 [From Pyridium] trimethobenzamide Allergy Severe Anaphylaxis Verified 03/02/22 19:55 [From Tigan] metoclopramide [From Reglan] AdvReac contraindic Verified 03/02/22 19:55 ated ondansetron [From Zofran] AdvReac contraindic Verified 03/02/22 19:55 ated prochlorperazine AdvReac contraindic Verified 03/02/22 19:55 [From Compazine] ated promethazine [From Phenergan] AdvReac contraindic Verified 03/02/22 19:55 ated Home Medications Medication Instructions Recorded Confirmed Type albuterol sulfate 90 mcg/actuation 2 puff inhalation Q6 PRN Shortness 03/02/22 03/02/22 History aerosol inhaler Of Breath Or Wheezing buspirone 10 mg tablet 10 mg PO HS 03/02/22 03/02/22 History clopidogrel 75 mg tablet 75 mg PO QAM 03/02/22 03/02/22 History cyanocobalamin (vitamin B-12) 1,000 mcg PO DAILY 03/02/22 03/02/22 History 1,000 mcg tablet epinephrine 0.3 mg/0.3 mL 0.3 mg IM UD PRN Allergic Reaction 03/02/22 03/02/22 History injection, auto-injector ergocalciferol (vitamin D2) 1,250 1,250 mcg PO WK 03/02/22 03/02/22 History mcg (50,000 unit) capsule eszopiclone 3 mg tablet (Lunesta) 3 mg PO HS 03/02/22 03/02/22 History fluoxetine 40 mg capsule 80 mg PO QAM 03/02/22 03/02/22 History fluticasone fur. 200 mcg-umeclid 1 ea inhalation DAILY 03/02/22 03/02/22 History 62.5 mcg-vilant 25 mcg inhalat.powder (Trelegy Ellipta) gabapentin 600 mg tablet,extended 600 mg PO PM 03/02/22 03/02/22 History release 24 hr galcanezumab-gnlm 120 mg/mL 120 mg subcut MONTHLY 03/02/22 03/02/22 History subcutaneous pen injector (Emgality Pen) hydrocortisone 5 mg tablet 15 mg PO . EVERY AFTERNOON 03/02/22 03/02/22 History hydrocortisone 5 mg tablet 25 mg PO QAM 03/02/22 03/02/22 History immune globulin (human) (IgG) 10 30 g IV MONTHLY 03/02/22 03/02/22 History gram intravenous solution levothyroxine 88 mcg tablet 88 mcg PO DAILYBB 03/02/22 03/02/22 History linaclotide 145 mcg capsule 145 mcg PO DAILYBB 03/02/22 03/02/22 History (Linzess) trazodone 100 mg tablet 100 mg PO HS 03/02/22 03/02/22 History zonisamide 100 mg capsule 100 mg PO DAILY 03/02/22 03/02/22 History Patient History Medical History Adrenal insufficiency Asthma Atrial flutter CVID (common variable immunodeficiency) YVETTE (generalized anxiety disorder) History of cerebral aneurysm 12/2019-s/p coiling 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 History of OCD (obsessive compulsive disorder) Hypogammaglobulinemia Panhypopituitarism Prolonged QT interval PTSD (post-traumatic stress disorder) SVT (supraventricular tachycardia) Surgical History S/P coil embolization of cerebral aneurysm Family History Mother Breast cancer Social History Smoking Status: Never smoker Hx Alcohol Use: No Hx Substance Use: No Preferred Language: Montserratian Communication Ability: Effective Commercial Collector Required: No Beliefs That Will Affect Care: None Current Living Situation: Alone Feels Safe at Home: Yes Safety Concerns: Feels Safe At This Time Assistive Devices: None Review of Systems Review of Systems: All systems reviewed & are unremarkable except as noted in HPI & below Physical Exam Constitutional: WD/WN, vitals as above Cardiovascular: RRR, no murmur, no edema (mildly tachy) Gastrointestinal (Abdomen): normal bowel sounds, soft, nontender, no hepatosplenomegaly Results & Data ([facility]) Vital Signs (Past 12 Hours) Vital Signs Temp Pulse Resp BP BP Pulse Ox O2 Del Method 03/03/22 11:00 36.3 C L 94 H 18 121/78 97 Room Air 03/03/22 07:27 36.8 C 105 H 16 92/47 L 97 Room Air 03/03/22 03:50 36.5 C 123 H 14 96/56 L 96 Room Air 03/03/22 02:58 107/61 Diagnostic Findings WBC 14 Hb 11.5 Plt 314 Na 134 K 4.1 CO2 16 Calcium 8.2 PO4 3.4 Mg 1.9 TB 0.3 AST 12 ALT 12 AP 79 TP .1 Abl 3.7
[2022-03-03] MEDS: HYDROmorphone INJ 1 MG/ML SYRINGE IV PRN ×5 (12:18→21:30)
--- NOTE | 2022-03-03 14:34 | Hospitalist Progress Note ---
Date of Service March 03, 2022 Assessment & Plan (1) Panhypopituitarism: (2) Adrenal insufficiency: Plan: History of hematochromatosis According to patientpanhypopituitarism since aneurysm surgery. Admitted from 02/21-03/01 for viral gastroenteritis ;discharged on 25 mg hydrocortisone in a.m. and 15 mg in p.m. Saw her business analyst on 03/02 prior to the presentation to the ED here. Also admitted in [facility] 02/12 to 02/18 with acute adrenal crisis. Treated with IV Solu-Medrol 50 mg 3 times daily; downtrended to 20 mg 3 times daily on discharge. Repeated hospitalization requiring Dilaudid and Benadryl for pain control and nausea respectively. Plan; -Currently normotensive; but he still complaining of nausea and vomiting along with abdominal pain. She did receive 100 mg of IV hydrocortisone. Dose decr eased to 50 mg 3 times daily. We will continue to downtrend based on her symptom improvement. Will eventually downtrend to her home dose (3) Abdominal pain: Plan: Reports that the abdominal pain usually occurs when she has adrenal crisis As per the note from her PCP from 02/20; had multiple episode of hematemesis occurred when she was admitted in [place]; treated with Protonix. GI consulted during the admission; recommend right upper quadrant ultrasound and starting Protonix. Currently on Dilaudid as needed. Consulted pain management given patient's complicated history with requirement of multiple dose of opioids in the past. (4) Hypokalemia: (5) Hypophosphatemia: (6) Hypomagnesemia: Plan: K+ 2.4, Phos 1.4, Mg +1.5 Repleted (7) SVT (supraventricular tachycardia): (8) Prolonged QT interval: Plan: History of SVT requiring cardioversion and prolonged QT in the past due to severe electrolyte abnormalities Presented with SVT on admission which improved with Valsalva maneuver and IVF Prolonged QTC noted on EKG -- avoid QTC prolonging agents, correct electrolytes, monitor daily EKG (9) S/P coil embolization of cerebral aneurysm: (10) History of cerebral aneurysm: Plan: Continue clopidogrel (11) YVETTE (generalized anxiety disorder): (12) PTSD (post-traumatic stress disorder): (13) History of OCD (obsessive compulsive disorder): Plan: Continue home medications including buspirone, trazodone, zonisamide, Lunesta, fluoxetine (14) Hypogammaglobulinemia: Plan: Receives IVIG monthly As Port-A-Cath on her chest (15) Asthma: Plan: No signs of acute exacerbation, continue home inhaler (16) DVT prophylaxis: Plan: SCDs Admission and Anticipated Discharge Date Admission Date: March 02, 2022 Subjective Patient seen and examined at bedside. Patient is complaining of abdominal pain; also complains of nausea. She says the current dose of Dilaudid does not help for her; she states she had after 2 mg of Dilaudid in the past and had tolerated well. She also reports that Benadryl helps her with her nausea; she reports that she wants higher dose than she is currently on. Review of Systems Review of Systems: All systems reviewed & are unremarkable except as noted in Subjective Physical Exam Physical Exam: Constitutional: WD/WN, vitals as above, NAD, sitting up in bed, pleasant, conversing easily Respiratory: normal respiratory effort, lungs clear to auscultation, no wheeze, rales, rhonchi. Normal insp/exp effort, no accessory muscle use Cardiovascular: RRR, no murmur, no edema Vessels: no JVD or carotid bruit Chest: normal inspection of chest. Port-A-Cath in place Abdomen: normal bowel sounds, soft, nontender, no hepatosplenomegaly Musculoskeletal: no cyanosis or clubbing, extremities motor strength 5/5 Skin: no rashes, warm and dry normal turgor Neurologic: PERRL, EOMI, accommodation nl, no face palsy, no dysarthria CN's II- XI intact bilaterally and moves all extremities Psychiatric: A+Ox3, euthymic affect Lymphatic: no cervical or axillary lymphadenopathy : deferred Results & Data Results & Data ([facility]) Vital Signs (Past 12 Hours) Vital Signs Temp Pulse Pulse Resp BP BP Pulse Ox 03/03/22 11:00 36.3 C L 94 H 18 121/78 97 03/03/22 07:27 36.8 C 105 H 16 92/47 L 97 03/03/22 03:50 36.5 C 123 H 14 96/56 L 96 03/03/22 02:58 107/61 03/02/22 23:44 121 H 03/02/22 23:19 122 H 10/31/22 23:12 36.6 C 120 H 17 113/68 97 O2 Del Method 03/03/22 11:00 Room Air 03/03/22 07:27 Room Air 03/03/22 03:50 Room Air 03/03/22 02:58 03/02/22 23:44 03/02/22 23:19 03/02/22 23:12 Room Air Laboratory Results Laboratory Results WBC 14.51 K/ul (4.8-10.8) H 03/03/22 05:45 RBC 3.94 M/uL (3.93-5.22) 03/03/22 05:45 Hgb 11.5 g/dl (12.0-16.0) L 03/03/22 05:45 Hct 35.3 % (34.1-44.9) 03/03/22 05:45 MCV 89.6 fL (80.0-100.0) 03/03/22 05:45 MCH 29.2 pg (25.0-34.0) 03/03/22 05:45 MCHC 32.6 g/dL (32.0-36.0) 03/03/22 05:45 RDW Std Deviation 42.2 fL (36.4-46.3) 03/03/22 05:45 RDW Coeff of Belinda 12.9 % (11.5-14.5) 03/03/22 05:45 Plt Count 314 K/uL (130-400) 03/03/22 05:45 MPV 9.9 fL (9.4-12.3) 03/03/22 05:45 Immature Gran % (Auto) 1.1 % 03/02/22 16:59 Neut % (Auto) 58.0 % 03/02/22 16:59 Lymph % (Auto) 34.0 % 03/02/22 16:59 [place] % (Auto) 6.1 % 03/02/22 16:59 Eos % (Auto) 0.4 % 03/02/22 16:59 Baso % (Auto) 0.4 % 03/02/22 16:59 Neut # (Auto) 6.63 K/uL (1.4-6.5) H 03/02/22 16:59 Lymph # (Auto) 3.87 K/uL (1.2-3.4) H 03/02/22 16:59 [place] # (Auto) 0.69 K/uL (0.24-0.82) 03/02/22 16:59 Eos # (Auto) 0.04 K/uL (0-0.50) 03/02/22 16:59 Baso # (Auto) 0.04 K/uL (0-0.2) 03/02/22 16:59 Immature Gran # (Auto) 0.12 K/uL (0.00-0.02) H 03/02/22 16:59 PT 10.2 Seconds (9.0-12.0) 03/02/22 16:59 INR 1.0 (0.9-1.1) 03/02/22 16:59 APTT 53.2 Seconds (21.0-31.0) H* 03/02/22 16:59 PTT Ratio 1.9 03/02/22 16:59 Sodium 134 mmol/L (136-145) L 03/03/22 05:45 Potassium 4.1 mmol/L (3.5-5.1) 03/03/22 05:45 Chloride 105 mmol/L (98-107) 03/03/22 05:45 Carbon Dioxide 16 mmol/L (21-32) L 03/03/22 05:45 Anion Gap 13 (3-11) H 03/03/22 05:45 BUN 9 mg/dl (6-23) 03/03/22 05:45 Creatinine 0.59 mg/dl (0.6-1.2) L 03/03/22 05:45 Est Cr Clr Drug Dosing 169.6 ml/min 03/03/22 05:45 Est GFR ( Amer) 139.6 ml/min 03/03/22 05:45 Est GFR (Non-Af Amer) 120.4 ml/min 03/03/22 05:45 BUN/Creatinine Ratio 15.3 (10-20) 03/03/22 05:45 Glucose 175 mg/dl (70-99(Fasting)) H 03/03/22 05:45 Calcium 8.2 mg/dl (8.5-10.1) L 03/03/22 05:45 Phosphorus 3.4 mg/dl (2.5-4.9) D 03/03/22 05:45 Magnesium 1.9 mg/dl (1.7-2.4) 03/03/22 05:45 Total Bilirubin 0.3 mg/dl (0.2-1.0) 03/02/22 16:59 AST 12 U/L (13-39) L 03/02/22 16:59 ALT 12 U/L (7-52) 03/02/22 16:59 Alkaline Phosphatase 79 U/L (34-104) 03/02/22 16:59 Troponin I High Sens 3.3 pg/ml (0-14) 03/02/22 16:59 Total Protein 6.1 gm/dl (6.0-8.3) 03/02/22 16:59 Albumin 3.7 gm/dl (3.4-5.0) 03/02/22 16:59 Globulin 2.4 gm/dl (2.5-4.0) L 03/02/22 16:59 Albumin/Globulin Ratio 1.5 (0.9-2) 03/02/22 16:59 TSH 2.670 uIu/ml (0.300-4.500) 03/02/22 16:59 HCG, Qual Negative (Negative) 03/02/22 16:59 Urine Color Yellow 03/02/22 18:02 Urine Appearance Turbid (Clear) A 03/02/22 18:02 Urine pH 8.0 (4.5-7.5) H 03/02/22 18:02 Ur Specific [place] 1.013 (1.000-1.030) 03/02/22 18:02 Urine Protein Negative (Negative) 03/02/22 18:02 Urine Glucose (UA) Negative (Negative) 03/02/22 18:02 Urine Ketones Negative (Negative) 03/02/22 18:02 Urine Blood Trace (Negative) H 03/02/22 18:02 Urine Nitrite Negative (Negative) 03/02/22 18:02 Urine Bilirubin Negative (Negative) 03/02/22 18:02 Urine Urobilinogen Negative (Negative) 03/02/22 18:02 Ur Leukocyte Esterase Negative (Negative) 03/02/22 18:02 Urine WBC (Auto) 1-5 /hpf (0-5) 03/02/22 18:02 Urine RBC (Auto) 5-10 /hpf (0-4) H 03/02/22 18:02 U Hyaline Cast (Auto) 1-5 /lpf (0-5) 03/02/22 18:02 U Epithel Cells (Auto) >30 /lpf (0-5) H 03/02/22 18:02 Urine Bacteria (Auto) 1+ (Negative) H 03/02/22 18:02 SARS-CoV-2, RNA, NAAT NEGATIVE (NEGATIVE) 03/02/22 18:18 Impressions Chest X-Ray 03/02/22 16:38 XR chest 1V portable CLINICAL HISTORY: Dysrhythmia TECHNIQUE: Single frontal radiograph of the chest was obtained. Comparison: None available at the time of this dictation. FINDINGS: A port catheter is seen. The cardiomediastinal silhouette is normal. The lungs are clear. No evidence of pleural effusion or pneumothorax. IMPRESSION: No acute chest disease. ACT 112: Negative or not required by law. Electronically signed by: Jos Otero M.D. 03/02/2022 5:21 PM
[2022-03-03] MEDS: PANTOprazole 40 MG TAB PO SCH (17:47)
--- NOTE | 2022-03-03 19:57 | Ultrasound Report ---
ABDOMINAL ULTRASOUND, RIGHT UPPER QUADRANT HISTORY: Generalized Abdominal pain. COMPARISON: None. FINDINGS: Pancreas: The pancreatic head and tail are obscured by overlying bowel gas. The remaining portions of the pancreas are within normal limits. Liver: 15 cm in length. A 1.5 cm hyperechoic focus within the right hepatic lobe. Gallbladder: No gallbladder wall thickening. No gallstones. CBD: 3 mm. Right kidney: No hydronephrosis. IMPRESSION: 1. Normal gallbladder. No gallstones. 2. A 1.5 cm hyperechoic focus within the right hepatic lobe. This is technically indeterminate by ult rasound but likely represents a hemangioma. ACT 112: Negative or not required by law. Electronically signed by: Leonardo Muñoz M.D. 03/03/2022 7:55 PM
[2022-03-04] MEDS ORDERED: HEPARIN 100 UNIT/ML 5ML FLUSH FLUSH PRN (00:11)
[2022-03-04] MEDS: HYDROCORTISONE SOD 40 MG in SYRINGE 0 ML IV SCH ×2 (00:57→08:36)
[2022-03-04] MEDS: HYDROmorphone INJ 1 MG/ML SYRINGE IV PRN ×6 (02:22→22:21)
[2022-03-04] MEDS: diphenhydrAMINE 50 MG/ML VIAL IV PRN ×4 (02:22→22:21)
[2022-03-04] MEDS: LEVOTHYROXINE SODIUM 88 MCG TABLET PO SCH (04:45)
[2022-03-04] MEDS: LINACLOTIDE 145 MCG CAPSULE PO SCH (04:45)
[2022-03-04 06:35] LABS: Basophils # (auto) 0.02 K/uL (0-0.2); Basophils % (auto) 0.2 %; Eosinophils # (auto) 0.01 K/uL (0-0.50); Eosinophils % (auto) 0.1 %; Hematocrit (blood only) 35.5 % (34.1-44.9); Hemoglobin 11.5 g/dl (12.0-16.0); Immature Granulocytes # (auto) 0.04 K/uL (0.00-0.02); Immature Granulocytes % (auto) 0.4 %; Lymphocytes # (auto) 1.85 K/uL (1.2-3.4); Lymphocytes % (auto) 20.5 %; Mean Corpuscular Hemoglobin 29.2 pg (25.0-34.0); Mean Corpuscular Hgb Conc 32.4 g/dL (32.0-36.0); Mean Corpuscular Volume 90.1 fL (80.0-100.0); Mean Platelet Volume 9.5 fL (9.4-12.3); Monocytes # (auto) 0.52 K/uL (0.24-0.82); Monocytes % (auto) 5.8 %; Neutrophils # (auto) 6.57 K/uL (1.4-6.5); Platelet Count 293 K/uL (130-400); RDW Coefficient of Variation 13.1 % (11.5-14.5); RDW Standard Deviation 43.1 fL (36.4-46.3); Red Blood Count 3.94 M/uL (3.93-5.22); White Blood Count 9.01 K/ul (4.8-10.8)
[2022-03-04] MEDS: POTASSIUM CHLORIDE 40 MEQ in NORMOSOL-R 1,000 ML IV SCH ×2 (06:37→16:52)
[2022-03-04 07:18] LABS: Calcium 8.7 mg/dl (8.5-10.1); Creatinine Clr Calc Pharmacy 184.7 ml/min; Est GFR (African American) 147.4 ml/min; Est GFR (Non-African American) 127.2 ml/min; Potassium 4.8 mmol/L (3.5-5.1)
[2022-03-04] MEDS: PANTOprazole 40 MG TAB PO SCH ×2 (08:33→20:09)
[2022-03-04] MEDS: CLOPIDOGREL BISULFATE 75 MG TAB PO SCH (08:33)
[2022-03-04] MEDS: FLUoxetine HCL 20 MG CAP PO SCH (08:34)
[2022-03-04] MEDS: FLUTICASONE FUROATE 200MCG 14 PUFFS/INHALER INH SCH (08:34)
[2022-03-04] MEDS: UMECLIDINIUM/VILANTEROL 62.5/25MCG 7 PUFFS/INHALER INH SCH (08:35)
[2022-03-04] MEDS ORDERED: LORazepam 1 MG in SYRINGE 0 ML IV ONE (09:15)
[2022-03-04 11:14] LABS: Amphetamines+Metham, Urine Neg (Neg); Barbiturates, Urine Neg (Neg); Benzodiazepine, Urine Neg (Neg); Cocaine, Urine Neg (Neg); MDMA (Ecstacy), Urine Neg (Neg); Methadone, Urine Neg (Neg); Opiate, Urine Pos (Neg); Phencyclidine, Urine Neg (Neg)
--- NOTE | 2022-03-04 14:04 | Electrocardiogram Report ---
Test Reason : Blood Pressure : / mmHG Vent. Rate : 057 BPM Atrial Rate : 057 BPM P-R Int : 134 ms QRS Dur : 092 ms QT Int : 464 ms P-R-T Axes : 047 -16 004 degrees QTc Int : 451 ms Sinus bradycardia with sinus arrhythmia Otherwise normal ECG When compared with ECG of 03-MAR-2022 02:26, Vent. rate has decreased BY 64 BPM Criteria for Inferior infarct are no longer Present Confirmed by Edvin Rodrigues ([id number]) on 03/04/2022 2:04:25 PM Referred By: REFERRED SELF Confirmed By:Xu Rodrigues
--- NOTE | 2022-03-04 16:06 | Pain Management Consultation ---
Date of Consultation March 04, 2022 Assessment & Plan (1) Abdominal pain: (2) SVT (supraventricular tachycardia): (3) Panhypopituitarism: (4) History of OCD (obsessive compulsive disorder): (5) PTSD (post-traumatic stress disorder): Plan 1. Due to her generalized abdominal region pain we have nothing interventional to offer the patient other than possibly pursuing a trial of abdominal trigger point injections but she currently defers. 2. It appears reasonable to utilize IV opiate therapy for 1-2 days upon her admission until symptoms resolve. Would not recommend utilization of outpatient opiate therapy. 3. Will attempt to further review her outpatient [facility] chart for further information regarding her prior work-up and potential treatment options 4. Will check urine drug screening with the understanding that opiate information will be invalid. Assessing for outpatient utilization of illicits which could potentially explain recurrent hospitalizations for abdominal pain secondary to withdrawal. She denies utilization of illicit drugs in the outpatient setting upon direct questioning. 5. Appears to be a significant behavioral health overlay to her symptomatic complaints and presentations-would strongly recommend involvement of behavioral health in the outpatient setting 6. Will follow-up with urine drug screening and sign off on patient at this time Negative for allowing us to participate in the care of Mrs. Barrientos History of Present Illness Reason for Consultation: Recurrent abdominal pain Requesting Physician: Jamal Velez MD Attending Physician: Blaine Melendez MD History of Present Illness Mrs. Barrientos is a 31-year-old white female who was admitted with complaints of abdominal pain, nausea and palpitations. Patient has past medical history significant for panhypopituitarism, common variable immunodeficiency receiving IVIG monthly, prolonged QT, SVT, history of cerebral aneurysm status post st enting and coiling, OCD, PTSD, and anxiety disorder. She reports recurrent difficulties with adrenal insufficiency due to her prior history of cerebral aneurysm. She frequently experiences difficulty with nausea and vomiting and generalized abdominal pain complaints requiring frequent emergent evaluations and hospitalizations. She was most recently hospitalized at [facility] from 02/25 through 03/01 and typically follows with [facility] physicians. She was reportedly visiting a friend in [place] when she developed acute symptoms which led to emergent evaluation at our hospital and subsequent admission. She reports her typical symptoms last for 1-2 days and resolved during her hospitalization with treatment of IV steroids and IV hydromorphone. She does not typically utilize any opiate therapy in the outpatient setting. She denies use of illicit drugs. Her pain is generalized in the lower abdomen and aching/cramping but reportedly sharp but she denies a stabbing characteristic. She denies it the pain is colicky. She denies thoracic or lumbar back pain or any radicular pattern pain complaints. She denies pain with dietary intake or bowel movements. She denies chronic constipation. Patient reports no further constitutional complaints. Patient reports chronic utilization of gabapentin therapy for treatment of her anxiety disorder. Plan of care discussed with Dr. Jeanine Diaz. Pain Assessment Full Body Front + Back: 1. Generalized-lower abdomen Pain scale - at its best (0-10): 4 Pain scale - at its worst (0-10): 8 Allergies Allergy/AdvReac Type Severity Reaction Status Date / Time fentanyl Allergy Severe Anaphylaxis Verified 03/02/22 19:55 Penicillins Allergy Severe Anaphylaxis Verified 03/02/22 19:55 phenazopyridine Allergy Severe Anaphylaxis Verified 03/02/22 19:55 [From Pyridium] trimethobenzamide Allergy Severe Anaphylaxis Verified 03/02/22 19:55 [From Tigan] metoclopramide [From Reglan] AdvReac contraindic Verified 03/02/22 19:55 ated ondansetron [From Zofran] AdvReac contraindic Verified 03/02/22 19:55 ated prochlorperazine AdvReac contraindic Verified 03/02/22 19:55 [From Compazine] ated promethazine [From Phenergan] AdvReac contraindic Verified 03/02/22 19:55 ated Home Medications Medication Instructions Recorded Confirmed Type albuterol sulfate 90 mcg/actuation 2 puff inhalation Q6 PRN Shortness 03/02/22 03/02/22 History aerosol inhaler Of Breath Or Wheezing buspirone 10 mg tablet 10 mg PO HS 03/02/22 03/02/22 History clopidogrel 75 mg tablet 75 mg PO QAM 03/02/22 03/02/22 History cyanocobalamin (vitamin B-12) 1,000 mcg PO DAILY 03/02/22 03/02/22 History 1,000 mcg tablet epinephrine 0.3 mg/0.3 mL 0.3 mg IM UD PRN Allergic Reaction 03/02/22 03/02/22 History injection, auto-injector ergocalciferol (vitamin D2) 1,250 1,250 mcg PO WK 03/02/22 03/02/22 History mcg (50,000 unit) capsule eszopiclone 3 mg tablet (Lunesta) 3 mg PO HS 03/02/22 03/02/22 History fluoxetine 40 mg capsule 80 mg PO QAM 03/02/22 03/02/22 History fluticasone fur. 200 mcg-umeclid 1 ea inhalation DAILY 03/02/22 03/02/22 History 62.5 mcg-vilant 25 mcg inhalat.powder (Trelegy Ellipta) gabapentin 600 mg tablet,extended 600 mg PO PM 03/02/22 03/02/22 History release 24 hr galcanezumab-gnlm 120 mg/mL 120 mg subcut MONTHLY 03/02/22 03/02/22 History subcutaneous pen injector (Emgality Pen) hydrocortisone 5 mg tablet 15 mg PO . EVERY AFTERNOON 03/02/22 03/02/22 History hydrocortisone 5 mg tablet 25 mg PO QAM 03/02/22 03/02/22 History immune globulin (human) (IgG) 10 30 g IV MONTHLY 03/02/22 03/02/22 History gram intravenous solution levothyroxine 88 mcg tablet 88 mcg PO DAILYBB 03/02/22 03/02/22 History linaclotide 145 mcg capsule 145 mcg PO DAILYBB 03/02/22 03/02/22 History (Linzess) trazodone 100 mg tablet 100 mg PO HS 03/02/22 03/02/22 History zonisamide 100 mg capsule 100 mg PO DAILY 03/02/22 03/02/22 History Pain History Pain Intensity Pain scale - at its best (0-10): 4 Pain scale - at its worst (0-10): 8 Patient History Medical History Adrenal insufficiency Asthma Atrial flutter CVID (common variable immunodeficiency) YVETTE (generalized anxiety disorder) History of cerebral aneurysm 12/2019-s/p coiling 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 History of OCD (obsessive compulsive disorder) Hypogammaglobulinemia Panhypopituitarism Prolonged QT interval PTSD (post-traumatic stress disorder) SVT (supraventricular tachycardia) Surgical History S/P coil embolization of cerebral aneurysm Family History Mother Breast cancer Social History Smoking Status: Never smoker Hx Alcohol Use: No Hx Substance Use: No Preferred Language: Haitian Communication Ability: Effective Acid Bleacher Required: No Beliefs That Will Affect Care: None Current Living Situation: Alone Feels Safe at Home: Yes Safety Concerns: Feels Safe At This Time Assistive Devices: None Physical Exam Physical Exam: General: Patient lying quietly in exam room in no acute distress. Speech and thought process appropriate. Soft speech. Communication was effective. Mood and affect appropriate. Cognition intact. Head: Normocephalic and atraumatic. ENT: No evidence of nasal or oral mucosal lesions. Mucous membranes are moist. Eyes: Pupils equal round reactive to light. Neck: Supple without adenopathy and full range of motion. Chest: Nontender to palpation of the costosternal junction. Abdomen: Soft and nondistended. No organomegaly. Bowel sounds active. Generalized tenderness over the lower abdominal region to palpation without rebound or guarding. No definable abdominal wall trigger points. Nontender wit h resisted abdominal wall musculature maneuvering. Lower extremities: Strength testing 5/5 and equal patient states intact without deficit. No increased abdominal pain with resisted hip flexion or extension maneuvering. Neurologic: Cranial nerves grossly intact. Ambulatory function not witnessed. Results ([facility]) Diagnostic Review Radiology Findings: [facility], [place] [phone] XRay Report Patient:JASMINA BARRIENTOS Admit Date:03/02/22 MR#:[id number] Address1: Acct ID:[id number] Address2: Date:1990 [facility] Zip: Age:31 Location:ED Sex:F Room/Bed: Att Phy: Diagnosis:CHEST PAIN, SOB, RAPID HEART BEAT Isamar Phy:PCP,NO Service Date:03/02/22 [facility] Phy: Interpreting Phy:Jos Otero MDAashlie Phy: Ordering Phy:Jimmie Calle DO cc: ~ XR chest 1V portable CLINICAL HISTORY: Dysrhythmia TECHNIQUE: Single frontal radiograph of the chest was obtained. Comparison: None available at the time of this dictation. FINDINGS: A port catheter is seen. The cardiomediastinal silhouette is normal. The lungs are clear. No evidence of pleural effusion or pneumothorax. IMPRESSION: No acute chest disease. ACT 112: Negative or not required by law. Electronically signed by: Jos Otero M.D. 03/02/2022 5:21 PM Dictated:03/02/221717 Transcribed: 03/02/221717 Other Findings: [place], [place] [phone] Ultrasound Report Patient:JASMINA BARRIENTOS Admit Date:03/02/22 MR#:[id number] Address1:[address] [place] [address] Acct ID:[id number] Address2:[address] Date:1990 [facility] Zip:[place] [address] Age:31 Location: Sex:F Room/Bed:[facility] Att Phy:Jamal Velez MD Diagnosis:HYPOKALEMIA Isamar Phy:Harmeet Correa MD Service Date:03/03/22 Fam Phy: Interpreting Phy:Leonardo Muñoz MDAdmit Phy:Maciej Moss MD Ordering Phy:Jamal Velez MD cc: ~ ABDOMINAL ULTRASOUND, RIGHT UPPER QUADRANT HISTORY: Generalized Abdominal pain. COMPARISON: None. FINDINGS: Pancreas: The pancreatic head and tail are obscured by overlying bowel gas. The remaining portions of the pancreas are within normal limits. Liver: 15 cm in length. A 1.5 cm hyperechoic focus within the right hepatic lobe. Gallbladder: No gallbladder wall thickening. No gallstones. CBD: 3 mm. Right kidney: No hydronephrosis. IMPRESSION: 1. Normal gallbladder. No gallstones. 2. A 1.5 cm hyperechoic focus within the right hepatic lobe. This is technically indeterminate by ultrasound but likely represents a hemangioma. ACT 112: Negative or not required by law. Electronically signed by: Leonardo Muñoz M.D. 03/03/2022 7:55 PM Dictated:03/03/221952 Transcribed: 03/03/221952 Opioid Risk Assessment Additional Findings: PDMP was reviewed which revealed no evidence of opioid prescribing in the outpatient setting. Controlled substances prescribed for clonazepam and eszopiclone. Drug Testing Testing Type: Urine Testing Ordered This Visit: Yes
--- NOTE | 2022-03-04 16:38 | Hospitalist Progress Note ---
Date of Service March 04, 2022 Assessment & Plan (1) Panhypopituitarism: (2) Adrenal insufficiency: Plan: Panhypopituitarism Adrenal insufficiency H/O hematochromatosis H/O panhypopituitarism due to aneurysm surgery as per patient H/O Multiple hospitalizations Admitted from 02/21-03/01 for viral gastroenteritis ;discharged on 25 mg hydrocortisone in a.m. and 15 mg in p.m. Follows with Administrative Volunteer in [place] Titrate down hydrocortisone to home doses as able Needs follow-up with endocrinology upon discharge (3) Abdominal pain: Plan: DD: Secondary to adrenal insufficiency, gastroenteritis, gastroparesis --Liver USD:Normal gallbladder. No gallstones. A 1.5 cm hyperechoic focus within the right hepatic lobe. This is technically indeterminate by ultrasound but likely represents a hemangioma. Continue PPI Appreciate GI input Appreciate pain management input Advance diet as tolerated (4) Hypokalemia: Plan: Replete as needed (5) Hypophosphatemia: Plan: Replete as needed (6) Hypomagnesemia: Plan: Replete as needed (7) SVT (supraventricular tachycardia): (8) Prolonged QT interval: Plan: H/O SVT requiring cardioversion and prolonged QT in the past due to severe electrolyte abnormalities Presented with SVT on admission which improved with Valsalva maneuver and IVF Avoid QTC prolonging agents, correct electrolytes Abnormal urinalysis Urine culture growing gram-positive cocci (5000 CFU/ml) Likely contamination Asymptomatic Monitor (9) S/P coil embolization of cerebral aneurysm: (10) History of cerebral aneurysm: Plan: Continue clopidogrel (11) YVETTE (generalized anxiety disorder): (12) PTSD (post-traumatic stress disorder): (13) History of OCD (obsessive compulsive disorder): Plan: Continue home medications including buspirone, trazodone, zonisamide, Lunesta, fluoxetine Will benefit from psychiatric follow-up as outpatient (14) Hypogammaglobulinemia: Plan: Receives IVIG monthly Port-A-Cath in place (15) Asthma: Plan: No signs of acute exacerbation continue home inhaler (16) DVT prophylaxis: Plan: SCDs Encouraged to ambulate Admission and Anticipated Discharge Date Admission Date: March 02, 2022 Subjective Patient is seen and examined at bedside States having nausea, vomiting, abdominal pain Denies any chest pain, shortness of breath Offers no other complaints Review of Systems Review of Systems: All systems reviewed & are unremarkable except as noted in Subjective Physical Exam Physical Exam: Physical Exam: Vitals signs as noted above General Appearance:Moderately built and nourished, no apparent distress Head: normocephalic, Atraumatic Eyes: normal inspection, EOMI Neck: supple, Trachea midline Respiratory/Chest: Normal breath sounds, CTA, No accessory muscle use Cardiovascular: S1, S2, No murmur Abdomen/GI:Soft, generalized tender, no guarding or rigidity, bowel sounds present Extremities/Musculoskeletal:normal inspection, no edema Neurologic/Psych:AAOX3, grossly no focal neurological deficits Skin: normal color, warm Results & Data Results & Data ([facility]) Vital Signs (Past 12 Hours) Vital Signs Temp Pulse Pulse Pulse Resp BP BP 03/04/22 14:18 127 H 03/04/22 15:27 36.8 C 106 H 16 106/68 03/04/22 14:19 135 H 30 H 127/91 03/04/22 11:50 116/77 03/04/22 11:43 36.4 C L 74 16 03/04/22 10:16 85 03/04/22 08:29 36.7 C 55 L 16 110/65 Pulse Ox O2 Del Method 03/04/22 14:18 03/04/22 15:27 97 03/04/22 14:19 98 Room Air 03/04/22 11:50 03/04/22 11:43 97 03/04/22 10:16 03/04/22 08:29 96 Room Air Laboratory Results Short CBC 03/04/22 Range/Units 06:22 WBC 9.01 (4.8-10.8) K/ul Hgb 11.5 L (12.0-16.0) g/dl Hct 35.5 (34.1-44.9) % Plt Count 293 (130-400) K/uL BMP 03/04/22 06:22 Sodium 137 Potassium 4.8 Chloride 107 Carbon Dioxide 26 BUN 7 Creatinine 0.50 L Glucose 100 H Calcium 8.7
[2022-03-04] MEDS: traZODone HCL 100 MG TAB PO SCH (20:10)
[2022-03-04] MEDS: GABAPENTIN 600 MG TAB PO SCH (20:10)
[2022-03-04] MEDS: busPIRone 5 MG TAB PO SCH (20:11)
[2022-03-04] MEDS: HYDROCORTISONE SOD 30 MG in SYRINGE 0 ML IV SCH (20:15)
[2022-03-04] MEDS: ESZOPICLONE 1 MG TAB PO SCH (21:02)
[2022-03-04] MEDS: oxyCODONE HCL IR 5 MG TAB (IMMEDIATE RELEASE) PO PRN (21:02)
[2022-03-05] MEDS: HYDROCORTISONE SOD 30 MG in SYRINGE 0 ML IV SCH (03:55)
[2022-03-05] MEDS: POTASSIUM CHLORIDE 40 MEQ in NORMOSOL-R 1,000 ML IV SCH ×2 (03:55→16:33)
[2022-03-05] MEDS: diphenhydrAMINE 50 MG/ML VIAL IV PRN ×3 (04:52→17:44)
[2022-03-05] MEDS: LINACLOTIDE 145 MCG CAPSULE PO SCH (05:46)
[2022-03-05] MEDS: LEVOTHYROXINE SODIUM 88 MCG TABLET PO SCH (05:46)
[2022-03-05] MEDS: oxyCODONE HCL IR 5 MG TAB (IMMEDIATE RELEASE) PO PRN ×3 (05:47→23:22)
[2022-03-05 06:17] LABS: Hematocrit (blood only) 36.7 % (34.1-44.9); Hemoglobin 11.9 g/dl (12.0-16.0); Mean Corpuscular Hemoglobin 29.5 pg (25.0-34.0); Mean Corpuscular Hgb Conc 32.4 g/dL (32.0-36.0); Mean Corpuscular Volume 91.1 fL (80.0-100.0); Mean Platelet Volume 9.8 fL (9.4-12.3); Platelet Count 263 K/uL (130-400); RDW Coefficient of Variation 12.9 % (11.5-14.5); RDW Standard Deviation 43.3 fL (36.4-46.3); Red Blood Count 4.03 M/uL (3.93-5.22); White Blood Count 7.89 K/ul (4.8-10.8)
[2022-03-05 06:39] LABS: Calcium 8.5 mg/dl (8.5-10.1); Creatinine Clr Calc Pharmacy 184.7 ml/min; Est GFR (African American) 147.4 ml/min; Est GFR (Non-African American) 127.2 ml/min; Potassium 4.4 mmol/L (3.5-5.1)
[2022-03-05] MEDS: HYDROmorphone INJ 1 MG/ML SYRINGE IV PRN ×2 (07:54→15:13)
[2022-03-05] MEDS: FLUTICASONE FUROATE 200MCG 14 PUFFS/INHALER INH SCH (09:02)
[2022-03-05] MEDS: PANTOprazole 40 MG TAB PO SCH ×2 (09:03→20:59)
[2022-03-05] MEDS: CLOPIDOGREL BISULFATE 75 MG TAB PO SCH (09:03)
[2022-03-05] MEDS: UMECLIDINIUM/VILANTEROL 62.5/25MCG 7 PUFFS/INHALER INH SCH (09:03)
[2022-03-05] MEDS: FLUoxetine HCL 20 MG CAP PO SCH (09:03)
[2022-03-05] MEDS: HYDROCORTISONE SOD 20 MG in SYRINGE 0 ML IV SCH ×2 (11:16→20:58)
--- NOTE | 2022-03-05 13:11 | Hospitalist Progress Note ---
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 and 15 mg in p.m. Follows with Setup Technician in [place] Titrate down hydrocortisone to home doses as able Needs follow-up with endocrinology upon discharge Decrease IV fluids (3) Abdominal pain: Plan: DD: Secondary to adrenal insufficiency, gastroenteritis, gastroparesis --Liver USD:Normal gallbladder. No gallstones. A 1.5 cm hyperechoic focus within the right hepatic lobe. This is technically indeterminate by ultrasound but likely represents a hemangioma. Continue PPI Appreciate GI input Appreciate pain management input Advance diet today (4) Hypokalemia: Plan: Replete as needed (5) Hypophosphatemia: Plan: Replete as needed (6) Hypomagnesemia: Plan: Replete as needed (7) SVT (supraventricular tachycardia): (8) Prolonged QT interval: Plan: H/O SVT requiring cardioversion and prolonged QT in the past due to severe electrolyte abnormalities Presented with SVT on admission which improved with Valsalva maneuver and IVF Avoid QTC prolonging agents, correct electrolytes Abnormal urinalysis Urine culture growing gram-positive cocci (5000 CFU/ml) Likely contamination Asymptomatic Monitor (9) S/P coil embolization of cerebral aneurysm: (10) History of cerebral aneurysm: Plan: Continue clopidogrel (11) YVETTE (generalized anxiety disorder): (12) PTSD (post-traumatic stress disorder): (13) History of OCD (obsessive compulsive disorder): Plan: Continue home medications including buspirone, trazodone, zonisamide, Lunesta, fluoxetine Will benefit from psychiatric follow-up as outpatient (14) Hypogammaglobulinemia: Plan: Receives IVIG monthly Port-A-Cath in place (15) Asthma: Plan: No signs of acute exacerbation continue home inhaler (16) DVT prophylaxis: Plan: SCDs Encouraged to ambulate Admission and Anticipated Discharge Date Admission Date: March 02, 2022 Subjective Patient is seen and examined at bedside Nausea, abdominal pain much better today Tolerated liquid diet Denies any chest pain, shortness of breath No other complaints Review of Systems Review of Systems: All systems reviewed & are unremarkable except as noted in Subjective Physical Exam Physical Exam: Physical Exam: Vitals signs as noted above General Appearance:Moderately built and nourished, no apparent distress Head: normocephalic, Atraumatic Eyes: normal inspection, EOMI Neck: supple, Trachea midline Respiratory/Chest: Normal breath sounds, CTA, No accessory muscle use Cardiovascular: S1, S2, No murmur Abdomen/GI:Soft, generalized tender, no guarding or rigidity, bowel sounds present Extremities/Musculoskeletal:normal inspection, no edema Neurologic/Psych:AAOX3, grossly no focal neurological deficits Skin: normal color, warm Results & Data Results & Data ([facility]) Vital Signs (Past 12 Hours) Vital Signs Temp Pulse Pulse Resp BP Pulse Ox O2 Del Method 03/05/22 11:00 113/73 03/05/22 11:11 37.1 C 60 16 99 Room Air 03/05/22 10:21 54 L 03/05/22 07:00 36.8 C 57 L 14 120/79 97 Room Air 03/05/22 03:51 36.7 C 68 16 98/67 L 96 Room Air Laboratory Results Short CBC 03/05/22 Range/Units 05:48 WBC 7.89 (4.8-10.8) K/ul Hgb 11.9 L (12.0-16.0) g/dl Hct 36.7 (34.1-44.9) % Plt Count 263 (130-400) K/uL BMP 03/05/22 05:48 Sodium 138 Potassium 4.4 Chloride 106 Carbon Dioxide 28 BUN 5 L Creatinine 0.50 L Glucose 107 H Calcium 8.5
[2022-03-05] MEDS ORDERED: ZONISAMIDE 100 MG CAPSULE PO SCH (14:00)
[2022-03-05] MEDS ORDERED: HYDROmorphone INJ 0.5 MG/0.5 ML SYR IV ONE (16:15)
[2022-03-05] MEDS: ESZOPICLONE 1 MG TAB PO SCH (20:58)
[2022-03-05] MEDS: traZODone HCL 100 MG TAB PO SCH (20:59)
[2022-03-05] MEDS: busPIRone 5 MG TAB PO SCH (20:59)
[2022-03-05] MEDS: GABAPENTIN 600 MG TAB PO SCH (20:59)
[2022-03-05] MEDS: ZONISAMIDE 100 MG CAPSULE PO SCH (21:00)
--- NOTE | 2022-03-05 21:18 | CT Scan Report ---
CT abd pelvis wo con CLINICAL HISTORY: abd pain TECHNIQUE: Helical axial images of the abdomen and pelvis were obtained. Automated dose lowering tech niques and/or adjustment according to patient size were utilized for this exam. This exam was perfor med without intravenous contrast. CT DOSE: 500.32 mGy.cm COMPARISON: None available at the time of this dictation. FINDINGS: Lower chest: No acute abnormality. A lipoma is noted in the underside of the diaphragm on the right. Liver: Unremarkable. No focal lesions are seen. Gallbladder and biliary tree: No calcified gallstones. Normal caliber wall. No intra- or extrahepatic biliary ductal dilation. Pancreas: Unremarkable, no focal lesions. Spleen: Unremarkable. Adrenals: Unremarkable. Kidneys and ureters: Unremarkable. Bladder: Unremarkable. Reproductive organs: Unremarkable. Bowel: Diverticulosis is seen without evidence of diverticulitis. The appendix is surgically absent. Lymph nodes Retroperitoneal: Unremarkable. Pelvic: Unremarkable. Mesenteric: Unremarkable. Peritoneum: Normal. Vessels: Unremarkable. Abdominal wall: Unremarkable. Bones: Unremarkable. IMPRESSION: No acute abnormalities. ACT 112: Negative or not required by law. Electronically signed by: Jos Otero M.D. 03/05/2022 9:16 PM
[2022-03-06] MEDS: HYDROmorphone INJ 1 MG/ML SYRINGE IV PRN ×3 (00:37→15:46)
[2022-03-06] MEDS: diphenhydrAMINE 50 MG/ML VIAL IV PRN ×4 (00:37→19:58)
[2022-03-06] MEDS ORDERED: KETOROLAC TROMETHAMINE 15 MG/ML VIAL IV ONE (01:39)
[2022-03-06] MEDS: HYDROCORTISONE SOD 20 MG in SYRINGE 0 ML IV SCH ×2 (04:44→11:54)
[2022-03-06] MEDS: LINACLOTIDE 145 MCG CAPSULE PO SCH (06:27)
[2022-03-06] MEDS: LEVOTHYROXINE SODIUM 88 MCG TABLET PO SCH (06:27)
[2022-03-06] MEDS: oxyCODONE HCL IR 5 MG TAB (IMMEDIATE RELEASE) PO PRN ×2 (07:34→15:45)
[2022-03-06] MEDS: CLOPIDOGREL BISULFATE 75 MG TAB PO SCH (07:35)
[2022-03-06] MEDS: FLUoxetine HCL 20 MG CAP PO SCH (07:35)
[2022-03-06] MEDS: FLUTICASONE FUROATE 200MCG 14 PUFFS/INHALER INH SCH (07:36)
[2022-03-06] MEDS: UMECLIDINIUM/VILANTEROL 62.5/25MCG 7 PUFFS/INHALER INH SCH (07:37)
[2022-03-06] MEDS: PANTOprazole 40 MG TAB PO SCH ×2 (07:37→19:58)
[2022-03-06 08:38] LABS: BUN Creatinine Ratio 12.5 (10-20); Calcium 8.9 mg/dl (8.5-10.1); Creatinine Clr Calc Pharmacy 164.9 ml/min; Est GFR (Non-African American) 122.5 ml/min; Potassium 3.8 mmol/L (3.5-5.1)
[2022-03-06 09:56] LABS: Codeine Urine NEGATIVE ng/mL (<50); Hydrocodone Urine NEGATIVE ng/mL (<50); Hydromor Urine 1750 ng/mL (<50); Morphine Urine NEGATIVE ng/mL (<50); Norhydrocodone Conf Ur NEGATIVE ng/mL (<50); Noroxycodone Urine NEGATIVE ng/mL (<50); Oxycodone Urine NEGATIVE ng/mL (<50); Oxymorph Urine NEGATIVE ng/mL (<50)
--- NOTE | 2022-03-06 14:29 | Hospitalist Progress Note ---
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 and 15 mg in p.m. Follows with Firing Pin Gauger in [place] IV hydrocortisone >>>PO hydrocortisone Discussed with her endocrinology Dr. Noah Corea on 03/06/22: Ok to transition her back to home dose Needs follow-up with endocrinology upon discharge Received IV fluids Monitor BP (3) Abdominal pain: Plan: DD: Secondary to adrenal insufficiency, gastroenteritis, gastroparesis --Liver USD:Normal gallbladder. No gallstones. A 1.5 cm hyperechoic focus within the right hepatic lobe. This is technically indeterminate by ultrasound but likely represents a hemangioma. --CT ABD:No acute abnormalities. Continue PPI Appreciate GI input Appreciate pain management input Tolerating gastroparesis diet Minimize narcotics use as able as could worsen gastroparesis (4) Hypokalemia: Plan: Replete as needed (5) Hypophosphatemia: Plan: Replete as needed (6) Hypomagnesemia: Plan: Replete as needed (7) SVT (supraventricular tachycardia): (8) Prolonged QT interval: Plan: H/O SVT requiring cardioversion and prolonged QT in the past due to severe electrolyte abnormalities Presented with SVT on admission which improved with Valsalva maneuver and IVF Avoid QTC prolonging agents, correct electrolytes Abnormal urinalysis Urine culture growing gram-positive cocci (5000 CFU/ml) Likely contamination Asymptomatic Monitor (9) S/P coil embolization of cerebral aneurysm: (10) History of cerebral aneurysm: Plan: Continue clopidogrel (11) YVETTE (generalized anxiety disorder): (12) PTSD (post-traumatic stress disorder): (13) History of OCD (obsessive compulsive disorder): Plan: Continue home medications including buspirone, trazodone, zonisamide, Lunesta, fluoxetine Will benefit from psychiatric follow-up as outpatient (14) Hypogammaglobulinemia: Plan: Receives IVIG monthly Port-A-Cath in place (15) Asthma: Plan: No signs of acute exacerbation continue home inhaler (16) DVT prophylaxis: Plan: SCDs Encouraged to ambulate Admission and Anticipated Discharge Date Admission Date: March 02, 2022 Subjective Patient is seen and examined at bedside Feels better today No new complaints Discussed with patient's airplane flight attendant over the phone Tolerating diet Denies any chest pain, shortness of breath Review of Systems Review of Systems: All systems reviewed & are unremarkable except as noted in Subjective Physical Exam Physical Exam: Physical Exam: Vitals signs as noted above General Appearance:Moderately built and nourished, no apparent distress Head: normocephalic, Atraumatic Eyes: normal inspection, EOMI Neck: supple, Trachea midline Respiratory/Chest: Normal breath sounds, CTA, No accessory muscle use Cardiovascular: S1, S2, No murmur Abdomen/GI:Soft, generalized tender, no guarding or rigidity, bowel sounds present Extremities/Musculoskeletal:normal inspection, no edema Neurologic/Psych:AAOX3, grossly no focal neurological deficits Skin: normal color, warm Results & Data Results & Data ([facility]) Vital Signs (Past 12 Hours) Vital Signs Temp Pulse Resp BP BP Pulse Ox O2 Del Method 03/06/22 11:20 36.7 C 75 14 106/60 96 Room Air 03/06/22 07:52 36.6 C 60 18 116/78 97 Room Air 03/06/22 03:45 36.5 C 63 18 110/74 96 Room Air Laboratory Results [facility] 03/06/22 07:29 Sodium 137 Potassium 3.8 Chloride 103 Carbon Dioxide 28 BUN 7 Creatinine 0.56 L Glucose 94 Calcium 8.9
[2022-03-06] MEDS ORDERED: HYDROCORTISONE 10 MG TAB PO SCH (15:00)
[2022-03-06] MEDS: busPIRone 5 MG TAB PO SCH (19:58)
[2022-03-06] MEDS: GABAPENTIN 600 MG TAB PO SCH (19:58)
[2022-03-06] MEDS: ZONISAMIDE 100 MG CAPSULE PO SCH (19:58)
[2022-03-06] MEDS: ESZOPICLONE 1 MG TAB PO SCH (22:17)
[2022-03-06] MEDS: traZODone HCL 100 MG TAB PO SCH (22:18)
[2022-03-07] MEDS: HYDROmorphone INJ 1 MG/ML SYRINGE IV PRN (00:25)
[2022-03-07] MEDS: diphenhydrAMINE 50 MG/ML VIAL IV PRN ×2 (01:53→07:50)
[2022-03-07] MEDS: LEVOTHYROXINE SODIUM 88 MCG TABLET PO SCH (06:25)
[2022-03-07] MEDS: LINACLOTIDE 145 MCG CAPSULE PO SCH (06:25)
[2022-03-07 06:43] LABS: Hematocrit (blood only) 38.2 % (34.1-44.9); Hemoglobin 12.5 g/dl (12.0-16.0); Mean Corpuscular Hemoglobin 29.3 pg (25.0-34.0); Mean Corpuscular Hgb Conc 32.7 g/dL (32.0-36.0); Mean Corpuscular Volume 89.5 fL (80.0-100.0); Platelet Count 289 K/uL (130-400); RDW Coefficient of Variation 12.4 % (11.5-14.5); RDW Standard Deviation 40.7 fL (36.4-46.3); Red Blood Count 4.27 M/uL (3.93-5.22); White Blood Count 10.86 K/ul (4.8-10.8)
[2022-03-07 07:18] LABS: BUN Creatinine Ratio 14.8 (10-20); Calcium 8.7 mg/dl (8.5-10.1); Creatinine Clr Calc Pharmacy 164.5 ml/min; Est GFR (African American) 138.1 ml/min; Est GFR (Non-African American) 119.1 ml/min; Potassium 3.4 mmol/L (3.5-5.1)
[2022-03-07] MEDS: UMECLIDINIUM/VILANTEROL 62.5/25MCG 7 PUFFS/INHALER INH SCH (07:44)
[2022-03-07] MEDS: FLUTICASONE FUROATE 200MCG 14 PUFFS/INHALER INH SCH (07:44)
[2022-03-07] MEDS: PANTOprazole 40 MG TAB PO SCH (07:44)
[2022-03-07] MEDS: FLUoxetine HCL 20 MG CAP PO SCH (07:47)
[2022-03-07] MEDS: CLOPIDOGREL BISULFATE 75 MG TAB PO SCH (07:47)
[2022-03-07] MEDS ORDERED: POTASSIUM CHLORIDE CRTAB 20 MEQ TABCR PO SCH (08:59)
[2022-03-07] MEDS ORDERED: POTASSIUM CHLORIDE CRTAB 20 MEQ TABCR PO ONE (08:59)
[2022-03-07] MEDS ORDERED: HYDROCORTISONE 10 MG TAB PO SCH (09:00)
--- NOTE | 2022-03-07 10:53 | Hospitalist Progress Note ---
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 and 15 mg in p.m. Follows with Credit Administrator in [place] IV hydrocortisone >>>PO hydrocortisone Discussed with her endocrinology Dr. Noah Corea on 03/06/22: Ok to transition her back to home dose Received IV fluids BP stable Plan to discharge home Advised to follow-up with endocrinology upon discharge (3) Abdominal pain: Plan: DD: Secondary to adrenal insufficiency, gastroenteritis, gastroparesis --Liver USD:Normal gallbladder. No gallstones. A 1.5 cm hyperechoic focus within the right hepatic lobe. This is technically indeterminate by ultrasound but likely represents a hemangioma. --CT ABD:No acute abnormalities. Continue PPI Appreciate GI input Appreciate pain management input Tolerating gastroparesis diet Minimize narcotics use as able as could worsen gastroparesis Advised to follow-up with gastroenterology upon discharge (4) Hypokalemia: Plan: Replete as needed (5) Hypophosphatemia: Plan: Replete as needed (6) Hypomagnesemia: Plan: Replete as needed (7) SVT (supraventricular tachycardia): (8) Prolonged QT interval: Plan: H/O SVT requiring cardioversion and prolonged QT in the past due to severe electrolyte abnormalities Presented with SVT on admission which improved with Valsalva maneuver and IVF Avoid QTC prolonging agents, correct electrolytes Abnormal urinalysis Urine culture growing gram-positive cocci (5000 CFU/ml) Likely contamination Asymptomatic Monitor (9) S/P coil embolization of cerebral aneurysm: (10) History of cerebral aneurysm: Plan: Continue clopidogrel (11) YVETTE (generalized anxiety disorder): (12) PTSD (post-traumatic stress disorder): (13) History of OCD (obsessive compulsive disorder): Plan: Continue home medications including buspirone, trazodone, zonisamide, Lunesta, fluoxetine Will benefit from psychiatric follow-up as outpatient (14) Hypogammaglobulinemia: Plan: Receives IVIG monthly Port-A-Cath in place (15) Asthma: Plan: No signs of acute exacerbation continue home inhaler (16) DVT prophylaxis: Plan: SCDs Encouraged to ambulate Admission and Anticipated Discharge Date Admission Date: March 02, 2022 Subjective Patient is seen and examined at bedside No new complaints Minimal abdominal discomfort on and off Tolerates diet Denies any chest pain, shortness of breath, dizziness Review of Systems Review of Systems: All systems reviewed & are unremarkable except as noted in Subjective Physical Exam Physical Exam: Physical Exam: Vitals signs as noted above General Appearance:Moderately built and nourished, no apparent distress Head: normocephalic, Atraumatic Eyes: normal inspection, EOMI Neck: supple, Trachea midline Respiratory/Chest: Normal breath sounds, CTA, No accessory muscle use Cardiovascular: S1, S2, No murmur Abdomen/GI:Soft, non tender, no guarding or rigidity, bowel sounds present Extremities/Musculoskeletal:normal inspection, no edema Neurologic/Psych:AAOX3, grossly no focal neurological deficits Skin: normal color, warm Results & Data Results & Data ([facility]) Vital Signs (Past 12 Hours) Vital Signs Temp Pulse Resp BP BP Pulse Ox O2 Del Method 03/07/22 07:24 36.7 C 66 18 124/87 97 Room Air 03/07/22 03:56 36.6 C 59 L 15 117/78 95 Room Air 03/06/22 23:03 36.7 C 62 18 122/80 96 Room Air Laboratory Results Short CBC 03/07/22 Range/Units 05:48 WBC 10.86 H (4.8-10.8) K/ul Hgb 12.5 (12.0-16.0) g/dl Hct 38.2 (34.1-44.9) % Plt Count 289 (130-400) K/uL BMP 03/07/22 05:48 Sodium 138 Potassium 3.4 L Chloride 103 Carbon Dioxide 28 BUN 9 Creatinine 0.61 Glucose 89 Calcium 8.7
--- NOTE | 2022-03-07 11:13 | Discharge Summary ---
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 Review of outpatient records show that patient is frequently admitted for similar presentation. Most recently admitted to [facility] 02/25 through 03/01 for viral gastroenteritis-like picture, treated for adrenal crisis. Patient reports she was feeling well until this afternoon when she had sudden onset nausea, lower abdominal pain, multiple episodes of vomiting. Patient states she then developed palpitations. Patient reports she is visiting a friend in [place]. She denies fevers and chills. No lightheadedness, dizziness, diaphoresis, syncopal events. She denies hematemesis, coffee-ground emesis, diarrhea, bright OB impression, dark tarry stools. No urinary symptoms. Upon arrival to the ED, patient was found to be tachycardic in the 150s, consistent with SVT. Heart rate improved with Valsalva maneuver. Labs show significant hypokalemia with K+ 2.4. Mg +1.5. Patient was given IVF, IV hydrocortisone, potassium and magnesium replacement. Admission Exam Per Admitting Provider Physical Exam Constitutional:L WD/WN, vitals as above Eyes: PERRL, conjunctivae normal, anicteric sclerae ENMT: external ear and nose normal, oropharynx normal Respiratory: normal respiratory effort, lungs clear to auscultation Cardiovascular: Rate/Rhythm: regular rhythm and + tachycardic Vessels: normal peripheral pulses Extremities: no edema Gastrointestinal (Abdomen): Inspection/Auscultation: normal bowel sounds; abdomen not distended Percussion/Palpation: + abdomen tender (BLLQ ) and abdomen soft; no hepatosplenomegaly Musculoskeletal: no cyanosis or clubbing, extremities motor strength 5/5 Skin: no rashes, warm and dry Neurologic: PERRL, EOMI, accommodation nl, no face palsy, no dysarthria Psychiatric: Orientation: alert and oriented x 3 Affect: + anxious affect Principal Diagnosis Gastroparesis Hypokalemia Adrenal insufficiency Supraventricular tachycardia Discharge Data Allergies Allergy/AdvReac Type Severity Reaction Status Date / Time fentanyl Allergy Severe Anaphylaxis Verified 03/02/22 19:55 Penicillins Allergy Severe Anaphylaxis Verified 03/02/22 19:55 phenazopyridine Allergy Severe Anaphylaxis Verified 03/02/22 19:55 [From Pyridium] trimethobenzamide Allergy Severe Anaphylaxis Verified 03/02/22 19:55 [From Tigan] metoclopramide [From Reglan] AdvReac contraindic Verified 03/02/22 19:55 ated ondansetron [From Zofran] AdvReac contraindic Verified 03/02/22 19:55 ated prochlorperazine AdvReac contraindic Verified 03/02/22 19:55 [From Compazine] ated promethazine [From Phenergan] AdvReac contraindic Verified 03/02/22 19:55 ated Consultations 03/02/22 18:50 ED Decision to Admit Stat 03/03/22 11:04 Consult Gastroenterology Routine 03/03/22 11:16 Consult Pain Management Routine Procedures Performed Laboratory Results WBC 10.86 K/ul (4.8-10.8) H 03/07/22 05:48 RBC 4.27 M/uL (3.93-5.22) 03/07/22 05:48 Hgb 12.5 g/dl (12.0-16.0) 03/07/22 05:48 Hct 38.2 % (34.1-44.9) 03/07/22 05:48 MCV 89.5 fL (80.0-100.0) 03/07/22 05:48 MCH 29.3 pg (25.0-34.0) 03/07/22 05:48 MCHC 32.7 g/dL (32.0-36.0) 03/07/22 05:48 RDW Std Deviation 40.7 fL (36.4-46.3) 03/07/22 05:48 RDW Coeff of Belinda 12.4 % (11.5-14.5) 03/07/22 05:48 Plt Count 289 K/uL (130-400) 03/07/22 05:48 MPV 10.0 fL (9.4-12.3) 03/07/22 05:48 Immature Gran % (Auto) 0.4 % 03/04/22 06:22 Neut % (Auto) 73.0 % 03/04/22 06:22 Lymph % (Auto) 20.5 % 03/04/22 06:22 Sullivan % (Auto) 5.8 % 03/04/22 06:22 Eos % (Auto) 0.1 % 03/04/22 06:22 Baso % (Auto) 0.2 % 03/04/22 06:22 Neut # (Auto) 6.57 K/uL (1.4-6.5) H 03/04/22 06:22 Lymph # (Auto) 1.85 K/uL (1.2-3.4) 03/04/22 06:22 Sullivan # (Auto) 0.52 K/uL (0.24-0.82) 03/04/22 06:22 Eos # (Auto) 0.01 K/uL (0-0.50) 03/04/22 06:22 Baso # (Auto) 0.02 K/uL (0-0.2) 03/04/22 06:22 Immature Gran # (Auto) 0.04 K/uL (0.00-0.02) H 03/04/22 06:22 PT 10.2 Seconds (9.0-12.0) 03/02/22 16:59 INR 1.0 (0.9-1.1) 03/02/22 16:59 APTT 53.2 Seconds (21.0-31.0) H* 03/02/22 16:59 PTT Ratio 1.9 03/02/22 16:59 Sodium 138 mmol/L (136-145) 03/07/22 05:48 Potassium 3.4 mmol/L (3.5-5.1) L 03/07/22 05:48 Chloride 103 mmol/L (98-107) 03/07/22 05:48 Carbon Dioxide 28 mmol/L (21-32) 03/07/22 05:48 Anion Gap 7 (3-11) 03/07/22 05:48 BUN 9 mg/dl (6-23) 03/07/22 05:48 Creatinine 0.61 mg/dl (0.6-1.2) 03/07/22 05:48 Est Cr Clr Drug Dosing 164.5 ml/min 03/07/22 05:48 Est GFR ( Amer) 138.1 ml/min 03/07/22 05:48 Est GFR (Non-Af Amer) 119.1 ml/min 03/07/22 05:48 BUN/Creatinine Ratio 14.8 (10-20) 03/07/22 05:48 Glucose 89 mg/dl (70-99(Fasting)) 03/07/22 05:48 Calcium 8.7 mg/dl (8.5-10.1) 03/07/22 05:48 Phosphorus 3.4 mg/dl (2.5-4.9) D 03/03/22 05:45 Magnesium 1.9 mg/dl (1.7-2.4) 03/03/22 05:45 Total Bilirubin 0.3 mg/dl (0.2-1.0) 03/02/22 16:59 AST 12 U/L (13-39) L 03/02/22 16:59 ALT 12 U/L (7-52) 03/02/22 16:59 Alkaline Phosphatase 79 U/L (34-104) 03/02/22 16:59 Troponin I High Sens 3.3 pg/ml (0-14) 03/02/22 16:59 Total Protein 6.1 gm/dl (6.0-8.3) 03/02/22 16:59 Albumin 3.7 gm/dl (3.4-5.0) 03/02/22 16:59 Globulin 2.4 gm/dl (2.5-4.0) L 03/02/22 16:59 Albumin/Globulin Ratio 1.5 (0.9-2) 03/02/22 16:59 TSH 2.670 uIu/ml (0.300-4.500) 03/02/22 16:59 HCG, Qual Negative (Negative) 03/02/22 16:59 Urine Color Yellow 03/02/22 18:02 Urine Appearance Turbid (Clear) A 03/02/22 18:02 Urine pH 8.0 (4.5-7.5) H 03/02/22 18:02 Ur Specific [place] 1.013 (1.000-1.030) 03/02/22 18:02 Urine Protein Negative (Negative) 03/02/22 18:02 Urine Glucose (UA) Negative (Negative) 03/02/22 18:02 Urine Ketones Negative (Negative) 03/02/22 18:02 Urine Blood Trace (Negative) H 03/02/22 18:02 Urine Nitrite Negative (Negative) 03/02/22 18:02 Urine Bilirubin Negative (Negative) 03/02/22 18:02 Urine Urobilinogen Negative (Negative) 03/02/22 18:02 Ur Leukocyte Esterase Negative (Negative) 03/02/22 18:02 Urine WBC (Auto) 1-5 /hpf (0-5) 03/02/22 18:02 Urine RBC (Auto) 5-10 /hpf (0-4) H 03/02/22 18:02 U Hyaline Cast (Auto) 1-5 /lpf (0-5) 03/02/22 18:02 U Epithel Cells (Auto) >30 /lpf (0-5) H 03/02/22 18:02 Urine Bacteria (Auto) 1+ (Negative) H 03/02/22 18:02 Urine Opiates Screen Pos (Neg) H 03/04/22 09:52 U Codeine Confrm GC/MS NEGATIVE ng/mL (<50) 03/04/22 09:52 Ur Morphine (GC/MS) NEGATIVE ng/mL (<50) 03/04/22 09:52 Ur Hydrocodone (GC/MS) NEGATIVE ng/mL (<50) 03/04/22 09:52 Ur Norhydrocodone NEGATIVE ng/mL (<50) 03/04/22 09:52 Ur Noroxycodone NEGATIVE ng/mL (<50) 03/04/22 09:52 Urine Oxycodone (GC/MS) NEGATIVE ng/mL (<50) 03/04/22 09:52 U Oxymorphone GC/MS NEGATIVE ng/mL (<50) 03/04/22 09:52 Ur Methadone, Qual Neg (Neg) 03/04/22 09:52 Ur Hydromorphone (GC/MS) 1750 ng/mL (<50) H 03/04/22 09:52 Urine Barbiturates Neg (Neg) 03/04/22 09:52 Ur Phencyclidine (PCP) Neg (Neg) 03/04/22 09:52 U Amphetamin/Meth Scrn Neg (Neg) 03/04/22 09:52 MDMA (Ecstasy) Screen Neg (Neg) 03/04/22 09:52 U Benzodiazepines Scrn Neg (Neg) 03/04/22 09:52 Ur Cocaine Metabolite Neg (Neg) 03/04/22 09:52 U Marijuana (THC) Screen Neg (Neg) 03/04/22 09:52 Drug Screen Comment SEE NOTE 03/04/22 09:52 SARS-CoV-2, RNA, NAAT NEGATIVE (NEGATIVE) 03/02/22 18:18 Impressions Chest X-Ray 03/02/22 16:38 XR chest 1V portable CLINICAL HISTORY: Dysrhythmia TECHNIQUE: Single frontal radiograph of the chest was obtained. Comparison: None available at the time of this dictation. FINDINGS: A port catheter is seen. The cardiomediastinal silhouette is normal. The lungs are clear. No evidence of pleural effusion or pneumothorax. IMPRESSION: No acute chest disease. ACT 112: Negative or not required by law. Electronically signed by: Jos Otero M.D. 03/02/2022 5:21 PM Liver Ultrasound 03/03/22 14:20 ABDOMINAL ULTRASOUND, RIGHT UPPER QUADRANT HISTORY: Generalized Abdominal pain. COMPARISON: None. FINDINGS: Pancreas: The pancreatic head and tail are obscured by overlying bowel gas. The remaining portions of the pancreas are within normal limits. Liver: 15 cm in length. A 1.5 cm hyperechoic focus within the right hepatic lobe. Gallbladder: No gallbladder wall thickening. No gallstones. CBD: 3 mm. Right kidney: No hydronephrosis. IMPRESSION: 1. Normal gallbladder. No gallstones. 2. A 1.5 cm hyperechoic focus within the right hepatic lobe. This is technically indeterminate by ultrasound but likely represents a hemangioma. ACT 112: Negative or not required by law. Electronically signed by: Leonardo Muñoz M.D. 03/03/2022 7:55 PM Abdomen/Pelvis CT 03/05/22 16:14 CT abd pelvis wo con CLINICAL HISTORY: abd pain TECHNIQUE: Helical axial images of the abdomen and pelvis were obtained. Automated dose lowering techniques and/or adjustment according to patient size were utilized for this exam. This exam was performed without intravenous contrast. CT DOSE: 500.32 mGy.cm COMPARISON: None available at the time of this dictation. FINDINGS: Lower chest: No acute abnormality. A lipoma is noted in the underside of the diaphragm on the right. Liver: Unremarkable. No focal lesions are seen. Gallbladder and biliary tree: No calcified gallstones. Normal caliber wall. No intra- or extrahepatic biliary ductal dilation. Pancreas: Unremarkable, no focal lesions. Spleen: Unremarkable. Adrenals: Unremarkable. Kidneys and ureters: Unremarkable. Bladder: Unremarkable. Reproductive organs: Unremarkable. Bowel: Diverticulosis is seen without evidence of diverticulitis. The appendix is surgically absent. Lymph nodes Retroperitoneal: Unremarkable. Pelvic: Unremarkable. Mesenteric: Unremarkable. Peritoneum: Normal. Vessels: Unremarkable. Abdominal wall: Unremarkable. Bones: Unremarkable. IMPRESSION: No acute abnormalities. ACT 112: Negative or not required by law. Electronically signed by: Jos Otero M.D. 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 and 15 mg in p.m. Follows with [facility] [employer] in [place] IV hydrocortisone >>>PO hydrocortisone Discussed with her endocrinology Dr. Noah Corea on 03/06/22: Ok to transition her back to home dose Received IV fluids BP stable Plan to discharge home Advised to follow-up with endocrinology upon discharge (3) Abdominal pain: Plan: DD: Secondary to adrenal insufficiency, gastroenteritis, gastroparesis --Liver USD:Normal gallbladder. No gallstones. A 1.5 cm hyperechoic focus within the right hepatic lobe. This is technically indeterminate by ultrasound but likely represents a hemangioma. --CT ABD:No acute abnormalities. Continue PPI Appreciate GI input Appreciate pain management input Tolerating gastroparesis diet Minimize narcotics use as able as could worsen gastroparesis Advised to follow-up with gastroenterology upon discharge (4) Hypokalemia: Plan: Replete as needed (5) Hypophosphatemia: Plan: Replete as needed (6) Hypomagnesemia: Plan: Replete as needed (7) SVT (supraventricular tachycardia): (8) Prolonged QT interval: Plan: H/O SVT requiring cardioversion and prolonged QT in the past due to severe electrolyte abnormalities Presented with SVT on admission which improved with Valsalva maneuver and IVF Avoid QTC prolonging agents, correct electrolytes Abnormal urinalysis Urine culture growing gram-positive cocci (5000 CFU/ml) Likely contamination Asymptomatic Monitor (9) S/P coil embolization of cerebral aneurysm: (10) History of cerebral aneurysm: Plan: Continue clopidogrel (11) YVETTE (generalized anxiety disorder): (12) PTSD (post-traumatic stress disorder): (13) History of OCD (obsessive compulsive disorder): Plan: Continue home medications including buspirone, trazodone, zonisamide, Lunesta, fluoxetine Will benefit from psychiatric follow-up as outpatient (14) Hypogammaglobulinemia: Plan: Receives IVIG monthly Port-A-Cath in place (15) Asthma: Plan: No signs of acute exacerbation continue home inhaler (16) DVT prophylaxis: Plan: SCDs Encouraged to ambulate Total Time Total Time Spent Total Time Spent (In Minutes): 44 minutes Discharge Plan Discharge Items Patient Disposition: Home - Self-Care Reason For Visit: HYPOKALEMIA Discharge Diagnosis: Gastroparesis Hypokalemia Adrenal insufficiency Supraventricular tachycardia Activity: Per Instructions section Exercise/Sports: Gradually increase as tolerated Non-emergency contact: Primary Care Provider, Specialist and [employer] Super[employer] Call non-emergency contact if: you have any medication questions, your symptoms worsen and your pain is concerning for you Follow-up/Referrals: Harmeet Correa MD [Primary Care Provider] - Dietitian Info: Gastroparesis Diet: Regular Addtl Attending Provider Instructions: Follow-up with your primary care physician in 1 week. Please call for appointment Follow-up with your chemical research worker for management of gastroparesis in 2 weeks Follow-up with your machine binder stripper Dr. Corea as advised Seek immediate medical attention if your symptoms reoccur or worsen Please take all medications as instructed on discharge list below. Please call if you have any questions or problems. You can reach a [facility] hospitalist on duty at [facility] 24 hours a day by calling [phone] Pending Studies at Discharge: No Stand-Alone Forms: My [facility], Smoking Cessation Medications and DC Order Prescriptions: New pantoprazole 40 mg Tablet,Delayed Release (Dr/Ec) 40 mg PO BID Qty: 60 1RF Continued hydrocortisone 5 mg tablet 25 mg PO QAM fluoxetine 40 mg capsule 80 mg PO QAM zonisamide 100 mg capsule 100 mg PO DAILY albuterol sulfate 90 mcg/actuation HFA aerosol inhaler 2 puff INHALATION Q6 PRN (Reason: Shortness Of Breath Or Wheezing) Linzess 145 mcg capsule 145 mcg PO DAILYBB Emgality Pen 120 mg/mL pen injector 120 mg SUBCUT MONTHLY hydrocortisone 5 mg tablet 15 mg PO . EVERY AFTERNOON clopidogrel 75 mg tablet 75 mg PO QAM levothyroxine 88 mcg tablet 88 mcg PO DAILYBB trazodone 100 mg tablet 100 mg PO HS epinephrine 0.3 mg/0.3 mL auto-injector 0.3 mg IM UD PRN (Reason: Allergic Reaction) eszopiclone [Lunesta] 3 mg Tablet 3 mg PO HS gabapentin 600 mg Tablet Extended Release 24 Hr 600 mg PO PM cyanocobalamin (vitamin B-12) 1,000 mcg Tablet 1,000 mcg PO DAILY buspirone 10 mg tablet 10 mg PO HS Gammagard 10 gram Recon Soln 30 g IV MONTHLY ergocalciferol (vitamin D2) 1,250 mcg (50,000 unit) Capsule 1,250 mcg PO WK Trelegy Ellipta 200-62.5-25 mcg blister with device 1 ea INHALATION DAILY Discharge Orders: Discharge Order (Routine); Ordered 03/07/22 Ordered By: Blaine Melendez Admission Data Admit Date/Time: 03/02/22 19:58 Attending Provider: Blaine Melendez Admit Provider: Maciej Moss Primary Care Provider: Harmeet Correa Other Providers: Maciej Moss ; Arun Cantor ; Corey Larry
== END 2022-03-07 13:40 | disposition home or self-care (01) | DRG 644 ==
LOC: ED 16:28 → SUATTDRO 19:58 → 2S 19:58